=== PATIENT | male | born 1965 | race Caucasian/White ===

== ENCOUNTER 2016-12-16 00:38 | Emergency (ER) | payer OTHER, SELFPAY ==
[2016-12-16] MEDS ORDERED: ASPIRIN 81 MG CHEW TABLET As Ordered ONE (01:05)
[2016-12-16 01:08] LABS: BASO % 0.6 % (0.0-1.0); EOS # 0.4 K/mm3 (0.0-0.50); EOS % 3.8 % (0.0-3.0); LARGE UNSTAINED CELL # 0.3 K/mm3 (0.0-0.4); LARGE UNSTAINED CELL % 2.6 % (0.0-4.0); LYMPH # 2.4 K/mm3 (1.5-4.5); LYMPH % 24.7 % (24.0-44.0); MEAN CORPUSCULAR HEMOGLOBIN 30.1 pg (27.0-33.0); MEAN CORPUSCULAR HGB CONC 34.1 g/dl (32.0-36.5); MEAN CORPUSCULAR VOLUME 88.4 fl (80.0-96.0); MONO # 0.7 K/mm3 (0.0-0.8); MONO % 7.2 % (0.0-5.0); NEUTROPHILS # 5.9 K/mm3 (1.8-7.7); NEUTROPHILS % 61.2 % (36.0-66.0); PLATELET COUNT, AUTOMATED 233 k/mm3 (150-450); WHITE BLOOD COUNT 9.6 K/mm3 (4.0-10.0)
[2016-12-16 01:29] LABS: ALBUMIN 3.8 GM/DL (3.2-5.2); ALBUMIN/GLOBULIN RATIO 0.95 (1.00-1.93); ALKALINE PHOSPHATASE 74 U/L (45-117); ALT/SGPT 22 U/L (12-78); AMYLASE 95 U/L (25-115); ANION GAP 7 MEQ/L (8-16); AST/SGOT 16 U/L (15-37); BILIRUBIN,DIRECT 0.1 MG/DL (0.0-0.2); BILIRUBIN,TOTAL 0.3 MG/DL (0.2-1.0); BLOOD UREA NITROGEN 20 MG/DL (7-18); CALCIUM LEVEL 8.9 MG/DL (8.5-10.1); CARBON DIOXIDE LEVEL 27 MEQ/L (21-32); CHLORIDE LEVEL 107 MEQ/L (98-107); CREATININE FOR GFR 0.85 MG/DL (0.70-1.30); GLOMERULAR FILTRATION RATE > 60.0 (>56); GLUCOSE, FASTING 116 MG/DL (70-105); POTASSIUM SERUM 4.2 MEQ/L (3.5-5.1); SODIUM LEVEL 141 MEQ/L (136-145); TOTAL PROTEIN 7.8 GM/DL (6.4-8.2)
[2016-12-16] MEDS ORDERED: dexameTHASONE 20 MG/5 ML VIAL (J1100) As Ordered ONE (01:33)
[2016-12-16] MEDS ORDERED: IPRATROPIUM 0.5MG/ALBUTEROL 2.5MG INH SOL UD 3ML (DUONEB)(J7620) As Ordered ONE (01:37)
[2016-12-16 01:40] LABS: INR 0.97
[2016-12-16] MEDS ORDERED: CLOPIDOGREL 75 MG TAB As Ordered ONE (02:14)
[2016-12-16] MEDS ORDERED: HEPARIN SOD (PORCINE) 5000 UNITS/ML VIAL As Ordered ONE (02:14)
[2016-12-16] MEDS ORDERED: METOPROLOL TART 25 MG TABLET As Ordered ONE (02:14)
[2016-12-16] MEDS ORDERED: HEPARIN 25,000 UNITS/250 ML D5W BAG (100 UNITS/ML) As Ordered ONE (02:15)
--- NOTE | 2016-12-16 04:39 | EDDOCDS ---
Nurse's Notes [facility] Name: Stevan Evans Age: 51 yrs Sex: Male : 1965 Arrival Date: 12/16/2016 Time: 00:38 Bed 9 Private MD: Diagnosis: Non-ST elevation (NSTEMI) myocardial infarction Presentation: 12/16 00:46 Presenting complaint: Patient states: he has had intermittent chest pain since 1300 cz yesterday. episode of chest pain when going to be arround 2200. pt described it at first as epigastic pain that has gotten worse. currently pt denies any chest pain. Aspirin was not taken prior to arrival. Adult Sepsis Screening: The patient does not have new or worsening altered mentation. Patient's respiratory rate is less than 22. Systolic blood pressure is greater than 100. Patient has a qSOFA score of 0- Negative Sepsis Screen. Suicide/Homicide risk assessment- the patient denies having any suicidal and/or homicidal ideations and does not present with any other emotional, behavioral or mental health complaints. 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 Transition of care: patient was not received from another setting of care. 00:46 Acuity: KOFI Level 3 cz 00:46 Method Of Arrival: Walkin/Carried/Asstd cz Triage Assessment: 00:50 General: Appears in no apparent distress. Pain: Denies pain. cz 03:53 HIV screening NA for this visit Offered previously. Cardiovascular: Chest pain is ko2 described as vague, radiates Does not radiate. episodes are intermittent began. Historical: - Allergies: No known drug Allergies; - Home Meds: 1. none - PMHx: none; - PSHx: Appendectomy; - Social history: Smoking status: Patient uses tobacco products, heavy tobacco smoker. No barriers to communication noted, The patient speaks fluent Honduran, Speaks appropriately for age. - Family history: Not pertinent. - : The pt / caregiver states he / she is not on anticoagulants. Home medication list is obtained from the patient. - Exposure Risk Screening:: None identified. Screenin:04 Screening information is obtained from the patient. Fall risk: No risks identified. ko2 Assistance ADL's: requires no assistance with activities of daily living. Abuse/DV Screen: The patient / caregiver reports he/she is: not in a situation that causes fear, pain or injury. Nutritional screening: No deficits noted. Advance Directives: Currently, there is no health care proxy. There is no active DNR order. There is no living will. There is no Power of Baggage Handler. home support is adequate. Assessment: 01:03 General: Appears in no apparent distress, comfortable, Behavior is appropriate for age, ko2 cooperative. Pain: Denies pain. Neurological: Level of Consciousness is awake, alert. Cardiovascular: Heart tones S1 S2 present Rhythm is regular. Respiratory: Airway is patent Respiratory effort is even, unlabored. GI: Abdomen is obese. Derm: Skin is normal. Musculoskeletal: Range of motion intact in all extremities. 02:00 General: Appears in no apparent distress, comfortable, Behavior is appropriate for age, ko2 cooperative. Pain: Denies pain. Neurological: Level of Consciousness is awake, alert. Cardiovascular: Rhythm is regular. Respiratory: Airway is patent Respiratory effort is even, unlabored. Derm: Skin is normal. 03:00 General: Appears in no apparent distress, comfortable, Behavior is appropriate for age, ko2 cooperative. Neurological: Level of Consciousness is awake, alert. Respiratory: Airway is patent Respiratory effort is even, unlabored. Derm: Skin is normal. 04:04 General: Appears in no apparent distress, comfortable, Behavior is appropriate for age, ko2 cooperative. Pain: Denies pain. Neurological: Level of Consciousness is awake, alert. Respiratory: Airway is patent Respiratory effort is even, unlabored. Derm: Skin is normal. Vital Signs: 00:50 Weight 129.27 kg; Height 5 ft. 8 in. (172.72 cm); cz 00:51 BP 150 / 90; Pulse 83; Resp 16; Temp 98.1(T); Pulse Ox 94% on R/A; cz 01:05 Pulse 76 MON; Pulse Ox 96% ; ko2 01:06 BP 129 / 64 (auto/); ko2 01:21 BP 121 / 57 (auto/); ko2 01:21 Pulse 74 MON; Pulse Ox 95% ; ko2 01:35 Pulse 72 MON; Pulse Ox 96% ; ko2 01:36 BP 117 / 55 (auto/); ko2 01:51 BP 116 / 56 (auto/); ko2 01:51 Pulse 78 MON; Pulse Ox 94% ; ko2 02:06 BP 118 / 55 (auto/); ko2 02:06 Pulse 76 MON; Pulse Ox 96% ; ko2 02:21 BP 165 / 84 (auto/); ko2 02:21 Pulse 86 MON; Pulse Ox 96% ; ko2 02:36 BP 173 / 79 (auto/); ko2 02:36 Pulse 76 MON; Pulse Ox 96% ; ko2 02:51 BP 143 / 64 (auto/); ko2 02:51 Pulse 78 MON; Pulse Ox 96% ; ko2 03:06 BP 138 / 65 (auto/); ko2 03:06 Pulse 84 MON; Pulse Ox 95% ; ko2 04:38 BP 130 / 56; Pulse 72; Resp 18; Temp 98.6; Pulse Ox 97% ; Pain 0/10; ko2 00:50 Body Mass Index 43.33 (129.27 kg, 172.72 cm) cz Vitals: 00:50 Log In Time: December 16, 2016 at 00:39. cz ED Course: 00:39 Patient visited by Carito Odom Reg. hs2 00:39 Patient moved to Waiting hs2 00:44 Lou Sharma RN is Primary Nurse. cz 00:44 Patient moved to 9 cz 00:49 Triage Initiated cz 00:53 Bandar Cruz DO is Attending Physician. cs11 00:53 Patient visited by Bandar Cruz DO. cs11 00:53 EKG done. (by ED staff). Reviewed by Bandar Cruz DO. kb5 01:01 Pt & Aptt Sent. ko2 01:02 Cardiac Marker Panel Sent. ko2 01:02 Lipase Sent. ko2 01:02 Amylase Sent. ko2 01:02 Liver Profile Sent. ko2 01:02 MED Profile Sent. ko2 01:02 CBC with Diff Sent. ko2 01:03 Inserted saline lock: 20 gauge in right forearm and blood collected. The patient ko2 tolerated the procedure well. 01:42 Patient visited by Lou Sharma RN. ko2 02:17 Inserted saline lock: 20 gauge in left antecubital area The patient tolerated the mlc procedure well. 02:28 Patient name changed from Stevan\S\E\S\Evans\S\ to Stevan\S\Edward\S\Evans. EDMS 02:31 [place] [place] was scanned into [employer] and attached to record. hs2 03:53 The patient / caregiver is instructed regarding the plan of care and ED course. Cardiac ko2 monitor on. Pulse ox on. NIBP on. 04:37 No procedures done that require assistance. ko2 Administered Medications: 01:08 Drug: Aspirin 324 mg [aspirin 81 mg chewable tablet (4 tabs)] Route: PO; ko2 01:41 Drug: Albuterol-Ipratropium 3 ml [ipratropium-albuterol 0.5 mg-3 mg(2.5 mg base)/3 mL [facility] nebulization soln (3 mL)] Route: Inhalation; 01:41 Drug: Dexamethasone 10 mg [dexamethasone 4 mg/mL injection solution] Route: IV; Rate: ko2 bolus; Site: right forearm; 02:20 Drug: heparin (Thrombolytic Protocol, 12 units/kg/hr)) 07227 units [heparin (porcine) ko2 25,000 unit/250 mL (100 unit/mL) in dextrose 5 % IV] {Co-Signature: mlc (Beatriz Palma RN).} Route: IV; Rate: 1000 units/hr; Site: right forearm; 02:20 Drug: heparin (Thrombolytic Protocol, 60 units/kg)) 4000 units [heparin (porcine) 5,000 ko2 unit/mL injection solution (0.8 mL)] {Co-Signature: mlc (Beatriz Palma RN).} Route: IVP; Site: right forearm; 02:23 Drug: Plavix - Clopidogrel 150 mg [clopidogrel 75 mg tablet (2 tabs)] Route: PO; ko2 02:23 Drug: Metoprolol 25 mg [metoprolol tartrate 25 mg tablet (1 tabs)] Route: PO; ko2 RT: 01:41 Initial Med Neb Given as ordered Patient was instructed and evaluated on procedure jh6 Patient tolerated procedure well without adverse effect. Respiratory: Airway is patent Respiratory effort is even, unlabored, Respiratory pattern is regular symmetrical, Breath sounds are coarse in left posterior lower lobe Breath sounds with crackles in left posterior upper lobe, right posterior upper lobe and right posterior middle lobe Breath sounds with rhonchi in left posterior lower lobe Breath sounds are diminished in left posterior upper lobe, right posterior upper lobe, right posterior middle lobe and right posterior lower lobe. 01:46 Respiratory: Breath sounds are clear in left posterior upper lobe, right posterior jh6 upper lobe and right posterior middle lobe Breath sounds with crackles in right posterior lower lobe Breath sounds with rhonchi in left posterior lower lobe Breath sounds are diminished in left posterior upper lobe, right posterior upper lobe, left posterior lower lobe, right posterior middle lobe and right posterior lower lobe. Order Results: Lab Order: CBC with Diff; SPEC'M 12/16/16 00:58 Test: WHITE BLOOD COUNT; Value: 9.6; Range: 4.0-10.0; Units: K/mm3; Status: F Test: RED BLOOD COUNT; Value: 5.21; Range: 4.30-6.10; Units: M/mm3; Status: F Test: HEMOGLOBIN; Value: 15.7; Range: 14.0-18.0; Units: g/dl; Status: F Test: HEMATOCRIT; Value: 46.1; Range: 42.0-52.0; Units: %; Status: F Test: MEAN CORPUSCULAR VOLUME; Value: 88.4; Range: 80.0-96.0; Units: fl; Status: F Test: MEAN CORPUSCULAR HEMOGLOBIN; Value: 30.1; Range: 27.0-33.0; Units: pg; Status: F Test: MEAN CORPUSCULAR HGB CONC; Value: 34.1; Range: 32.0-36.5; Units: g/dl; Status: F Test: RED CELL DISTRIBUTION WIDTH; Value: 13.0; Range: 11.5-14.5; Units: %; Status: F Test: PLATELET COUNT, AUTOMATED; Value: 233; Range: 150-450; Units: k/mm3; Status: F Test: NEUTROPHILS %; Value: 61.2; Range: 36.0-66.0; Units: %; Status: F Test: LYMPH %; Value: 24.7; Range: 24.0-44.0; Units: %; Status: F Test: MONO %; Value: 7.2; Range: 0.0-5.0; Abnormal: Above high normal; Units: %; Status: F Test: EOS %; Value: 3.8; Range: 0.0-3.0; Abnormal: Above high normal; Units: %; Status: F Test: BASO %; Value: 0.6; Range: 0.0-1.0; Units: %; Status: F Test: LARGE UNSTAINED CELL %; Value: 2.6; Range: 0.0-4.0; Units: %; Status: F Test: NEUTROPHILS #; Value: 5.9; Range: 1.8-7.7; Units: K/mm3; Status: F Test: LYMPH #; Value: 2.4; Range: 1.5-4.5; Units: K/mm3; Status: F Test: MONO #; Value: 0.7; Range: 0.0-0.8; Units: K/mm3; Status: F Test: EOS #; Value: 0.4; Range: 0.0-0.50; Units: K/mm3; Status: F Test: BASO #; Value: 0.0; Range: 0.0-0.2; Units: K/mm3; Status: F Test: LARGE UNSTAINED CELL #; Value: 0.3; Range: 0.0-0.4; Units: K/mm3; Status: F Lab Order: MED Profile; [facility] 12/16/16 00:58 Test: GLUCOSE, FASTING; Value: 116; Range: 70-105; Abnormal: Above high normal; Units: MG/DL; Status: F Test: BLOOD UREA NITROGEN; Value: 20; Range: 7-18; Abnormal: Above high normal; Units: MG/DL; Status: F Test: CREATININE FOR GFR; Value: 0.85; Range: 0.70-1.30; Units: MG/DL; Status: F Test: GLOMERULAR FILTRATION RATE; Value: > 60.0; Range: >56; Status: F Test: SODIUM LEVEL; Value: 141; Range: 136-145; Units: MEQ/L; Status: F Test: POTASSIUM SERUM; Value: 4.2; Range: 3.5-5.1; Units: MEQ/L; Status: F Test: CHLORIDE LEVEL; Value: 107; Range: 98-107; Units: MEQ/L; Status: F Test: CARBON DIOXIDE LEVEL; Value: 27; Range: 21-32; Units: MEQ/L; Status: F Test: ANION GAP; Value: 7; Range: 8-16; Abnormal: Below low normal; Units: MEQ/L; Status: F Test: CALCIUM LEVEL; Value: 8.9; Range: 8.5-10.1; Units: MG/DL; Status: F Test Note: ; Units are mL/min/1.73 m2 Chronic Kidney Disease Staging per NKF: Stage I & II GFR >=60 Normal to Mildly Decreased Stage III GFR 30-59 Moderately Decreased Stage IV GFR 15-29 Severely Decreased Stage V GFR <15 Very Little GFR Left ESRD GFR <15 on BREAKER MACHINE OPERATOR Lab Order: Liver Profile; [facility]/16/16:58 Test: AST/SGOT; Value: 16; Range: 15-37; Units: U/L; Status: F Test: ALT/SGPT; Value: 22; Range: 12-78; Units: U/L; Status: F Test: ALKALINE PHOSPHATASE; Value: 74; Range: 45-117; Units: U/L; Status: F Test: BILIRUBIN,TOTAL; Value: 0.3; Range: 0.2-1.0; Units: MG/DL; Status: F Test: BILIRUBIN,DIRECT; Value: 0.1; Range: 0.0-0.2; Units: MG/DL; Status: F Test: TOTAL PROTEIN; Value: 7.8; Range: 6.4-8.2; Units: GM/DL; Status: F Test: ALBUMIN; Value: 3.8; Range: 3.2-5.2; Units: GM/DL; Status: F Test: ALBUMIN/GLOBULIN RATIO; Value: 0.95; Range: 1.00-1.93; Abnormal: Below low normal; Status: F Lab Order: Amylase; [facility]12/16/16:58 Test: AMYLASE; Value: 95; Range: 25-115; Units: U/L; Status: F Lab Order: Lipase; [facility]12/16/16:58 Test: LIPASE; Value: 231; Range: 73-393; Units: U/L; Status: F Lab Order: Cardiac Marker Panel; [facility]12/16/16:58 Test: CPK CREATINE PHOSPHOKINASE; Value: 129; Range: 39-308; Units: U/L; Status: F Test: CK-MB VALUE MASS; Value: 4.2; Range: 0.0-3.6; Abnormal: Above high normal; Units: NG/ML; Status: F Test: MB/CK RELATIVE INDEX; Value: 3.25; Range: < OR =4; Status: F Test: TROPONIN I; Value: 0.18; Range: < 0.10; Abnormal: Above high normal; Units: NG/ML; Status: F Test Note: ; DIAGNOSIS CRITERIA MMB ng/ml Relative Index (RI) NON-AMI < or = 5 N/A TOLLIVER ZONE > 5 < or = 4 AMI > 5 > 4 Lab Order: Pt & Aptt; SPEC'M 12/16/16 00:58 Test: PROTHROMBIN TIME; Value: 13.0; Range: 12.3-14.5; Units: SECONDS; Status: F Test: INR; Value: 0.97; Status: F Test: PARTIAL THROMBOPLASTIN TIME; Value: 30.3; Range: 26.6-37.1; Units: SECONDS; Status: F Test Note: ; THERAPUTIC HUMAN INR VALUES INDICATIONS NORMAL RANGES PROPHYLAXIS/TREATMENT OF: VENOUS THROMBOSIS 2.0-3.0 PULMONARY EMBOLISM 2.0-3.0 PREVENTION OF SYSTEMIC EMBOLISM FROM: TISSUE HEART VALVES 2.0-3.0 ACUTE MYOCARDIAL INFARCTION 2.0-3.0 VALVULAR HEART DISEASE 2.0-3.0 ATRIAL FIBRILLATION 2.0-3.0 MECHANICAL VALVES(HIGH RISK) 2.5-3.5 RECURRENT MYOCARDIAL INFARCTION 2.5-3.5 Outcome: 02:13 ER care complete, transfer ordered by Provider. cs11 04:03 Admission hand-off: Report called to Eda Vazquez RN [facility]. ko2 04:04 Discharge Assessment: Patient awake, alert and oriented x 3. No cognitive and/or ko2 functional deficits noted. Patient verbalized understanding of disposition instructions. patient administered narcotics - no. 04:37 The following High Risk Discharge criteria are identified: None. Transferred to [address] [facility] report to accompanying personnel Severino Hendrix, Meeting Coordinator and HENRY Elizabeth. Condition: stable. No special radiology studies were completed. Property :Personal belongings accompany Pt. 04:39 Patient left the ED. ko2 Signatures: Dispatcher [employer] EDMS Ham Calderon RN RN cz [place], Kristopher, JOHANNA [employer] RESTORER binh5 Nehemiah Lr 6 Bandar Cruz DO DO cs11 Beatriz Palma RN RN mlc Lou Sharma RN RN ko2 Carito Odom, Reg Reg hs2 Beatriz Palma RN mlc MTDD
--- NOTE | 2016-12-16 04:39 | EDDOCDS ---
Physician Documentation [facility] Name: Stevan Evans Age: 51 yrs Sex: Male : 1965 Arrival Date: 12/16/2016 Time: 00:38 Bed 9 Private MD: Disposition: 12/16 02:14 Critical Care:. cs11 Disposition: 12/16/16 02:13 Transfer ordered to [facility]. Diagnosis is Non-ST elevation (NSTEMI) myocardial infarction. - Reason for transfer: Higher level of care. - Accepting physician is Dr Stearns. - Condition is Stable. - Problem is new. - Symptoms have improved. Historical: - Allergies: No known drug Allergies; - Home Meds: 1. none - PMHx: none; - PSHx: Appendectomy; - Social history: Smoking status: Patient uses tobacco products, heavy tobacco smoker. No barriers to communication noted, The patient speaks fluent Polish, Speaks appropriately for age. - Family history: Not pertinent. - : The pt / caregiver states he / she is not on anticoagulants. Home medication list is obtained from the patient. - Exposure Risk Screening:: None identified. Vital Signs: 00:50 Weight 129.27 kg / 284.99 lbs; Height 5 ft. 8 in. (172.72 cm); cz 00:51 BP 150 / 90; Pulse 83; Resp 16; Temp 98.1(T); Pulse Ox 94% on R/A; cz 01:05 Pulse 76 MON; Pulse Ox 96% ; ko2 01:06 BP 129 / 64 (auto/); ko2 01:21 BP 121 / 57 (auto/); ko2 01:21 Pulse 74 MON; Pulse Ox 95% ; ko2 01:35 Pulse 72 MON; Pulse Ox 96% ; ko2 01:36 BP 117 / 55 (auto/); ko2 01:51 BP 116 / 56 (auto/); ko2 01:51 Pulse 78 MON; Pulse Ox 94% ; ko2 02:06 BP 118 / 55 (auto/); ko2 02:06 Pulse 76 MON; Pulse Ox 96% ; ko2 02:21 BP 165 / 84 (auto/); ko2 02:21 Pulse 86 MON; Pulse Ox 96% ; ko2 02:36 BP 173 / 79 (auto/); ko2 02:36 Pulse 76 MON; Pulse Ox 96% ; ko2 02:51 BP 143 / 64 (auto/); ko2 02:51 Pulse 78 MON; Pulse Ox 96% ; ko2 03:06 BP 138 / 65 (auto/); ko2 03:06 Pulse 84 MON; Pulse Ox 95% ; ko2 04:38 BP 130 / 56; Pulse 72; Resp 18; Temp 98.6; Pulse Ox 97% ; Pain 0/10; ko2 00:50 Body Mass Index 43.33 (129.27 kg, 172.72 cm) cz MDM: 00:45 ECG WITH READING ER PHYS+CARDIAG ordered. EDMS 00:54 Aspirin 324 mg PO once ordered. cs11 00:54 IV Saline Lock ordered. cs11 00:56 Chest, 2 View (pa\E\lat) Ordered. EDMS 00:56 CBC with Diff Ordered. EDMS 00:56 MED Profile Ordered. EDMS 00:56 Liver Profile Ordered. EDMS 00:56 Amylase Ordered. EDMS 00:56 Lipase Ordered. EDMS 00:56 Cardiac Marker Panel Ordered. EDMS 00:56 Pt & Aptt Ordered. EDMS 01:29 Albuterol-Ipratropium 3 ml Inhalation once ordered. cs11 01:29 Call Respiratory ordered. cs11 01:29 Dexamethasone 10 mg IV at bolus once ordered. cs11 01:31 Call Respiratory complete. ko2 02:03 CBC with Diff Reviewed. cs11 02:03 MED Profile Reviewed. cs11 02:03 Liver Profile Reviewed. cs11 02:03 Cardiac Marker Panel Reviewed. cs11 02:03 Amylase Reviewed. cs11 02:03 Lipase Reviewed. cs11 02:03 Pt & Aptt Reviewed. cs11 02:08 Plavix - Clopidogrel 150 mg PO once ordered. cs11 02:08 Metoprolol (Tartrate) 25 mg PO once ordered. cs11 02:08 heparin (Thrombolytic Protocol, 12 units/kg/hr)) 30367 units IV at 1000 units/hr once; cs11 Max. dose 1000units/hr. No Lovenox past 18hrs/ draw labs. ordered. 02:09 heparin (Thrombolytic Protocol, 60 units/kg)) 4000 units IVP once; max 4000 units. cs11 Ensure no Lovenox in past 18hr, labs drawn ordered. 02:30 Financial registration complete. hs2 02:31 [facility] Payment Agreement was scanned into [employer] and attached to record. hs2 Administered Medications: 01:08 Drug: Aspirin 324 mg [aspirin 81 mg chewable tablet (4 tabs)] Route: PO; ko2 01:41 Drug: Albuterol-Ipratropium 3 ml [ipratropium-albuterol 0.5 mg-3 mg(2.5 mg base)/3 mL jh6 nebulization soln (3 mL)] Route: Inhalation; :41 Drug: Dexamethasone 10 mg [dexamethasone 4 mg/mL injection solution] Route: IV; Rate: ko2 bolus; Site: right forearm; 02:20 Drug: heparin (Thrombolytic Protocol, 12 units/kg/hr)) 68369 units [heparin (porcine) ko2 25,000 unit/250 mL (100 unit/mL) in dextrose 5 % IV] {Co-Signature: mlc (Beatriz Palma RN).} Route: IV; Rate: 1000 units/hr; Site: right forearm; 02:20 Drug: heparin (Thrombolytic Protocol, 60 units/kg)) 4000 units [heparin (porcine) 5,000 ko2 unit/mL injection solution (0.8 mL)] {Co-Signature: mlc (Beatriz Palma RN).} Route: IVP; Site: right forearm; 02:23 Drug: Plavix - Clopidogrel 150 mg [clopidogrel 75 mg tablet (2 tabs)] Route: PO; ko2 02:23 Drug: Metoprolol 25 mg [metoprolol tartrate 25 mg tablet (1 tabs)] Route: PO; ko2 Critical Care Time: 02:14 Critical care time: Bedside Care: 90 minutes. Total time: 90 minutes cs11 Signatures: Dispatcher [employer] EDMS Ham Calderon RN RN Bandar Leslie DO DO cs11 Lou Sharma RN RN ko2 Carito Odom, Reg Reg hs2 Nehemiah Lr 6 Beatriz israel The chart was reviewed and I authenticate all verbal orders and agree with the evaluation and treatment provided.Attachments: 02:31 [facility] Payment Agreement hs2 MTDD
--- NOTE | 2016-12-16 07:54 | REP ---
Clinical: Lower chest and abdominal pain . Comparison: None . Technique: PA and lateral. Findings: The mediastinum and cardiac silhouette are normal. The lung manzo are clear and without acute consolidation, effusion, or pneumothorax. The skeletal structures are intact and normal. Impression: 1. No acute cardiopulmonary process. Signed by Jed Person MD 12/16/2016 07:46 A
--- NOTE | 2016-12-16 15:23 | ECGEPIP ---
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
--- NOTE | 2016-12-18 05:39 | EDDOCDS ---
Physician Documentation [facility] Name: Stevan Evans Age: 51 yrs Sex: Male : 1965 Arrival Date: 12/16/2016 Time: 00:38 Bed 9 Private MD: Disposition: 12/16 02:14 Critical Care:. cs11 Disposition: 12/16/16 02:13 Transfer ordered to [facility]. Diagnosis is Non-ST elevation (NSTEMI) myocardial infarction. - Reason for transfer: Higher level of care. - Accepting physician is Dr Stearns. - Condition is Stable. - Problem is new. - Symptoms have improved. Historical: - Allergies: No known drug Allergies; - Home Meds: 1. none - PMHx: none; - PSHx: Appendectomy; - Social history: Smoking status: Patient uses tobacco products, heavy tobacco smoker. No barriers to communication noted, The patient speaks fluent Khmer, Speaks appropriately for age. - Family history: Not pertinent. - : The pt / caregiver states he / she is not on anticoagulants. Home medication list is obtained from the patient. - Exposure Risk Screening:: None identified. Vital Signs: 00:50 Weight 129.27 kg / 284.99 lbs; Height 5 ft. 8 in. (172.72 cm); cz 00:51 BP 150 / 90; Pulse 83; Resp 16; Temp 98.1(T); Pulse Ox 94% on R/A; cz 01:05 Pulse 76 MON; Pulse Ox 96% ; ko2 01:06 BP 129 / 64 (auto/); ko2 01:21 BP 121 / 57 (auto/); ko2 01:21 Pulse 74 MON; Pulse Ox 95% ; ko2 01:35 Pulse 72 MON; Pulse Ox 96% ; ko2 01:36 BP 117 / 55 (auto/); ko2 01:51 BP 116 / 56 (auto/); ko2 01:51 Pulse 78 MON; Pulse Ox 94% ; ko2 02:06 BP 118 / 55 (auto/); ko2 02:06 Pulse 76 MON; Pulse Ox 96% ; ko2 02:21 BP 165 / 84 (auto/); ko2 02:21 Pulse 86 MON; Pulse Ox 96% ; ko2 02:36 BP 173 / 79 (auto/); ko2 02:36 Pulse 76 MON; Pulse Ox 96% ; ko2 02:51 BP 143 / 64 (auto/); ko2 02:51 Pulse 78 MON; Pulse Ox 96% ; ko2 03:06 BP 138 / 65 (auto/); ko2 03:06 Pulse 84 MON; Pulse Ox 95% ; ko2 04:38 BP 130 / 56; Pulse 72; Resp 18; Temp 98.6; Pulse Ox 97% ; Pain 0/10; ko2 00:50 Body Mass Index 43.33 (129.27 kg, 172.72 cm) cz MDM: 00:45 ECG WITH READING ER PHYS+CARDIAG ordered. EDMS 00:54 Aspirin 324 mg PO once ordered. cs11 00:54 IV Saline Lock ordered. cs11 00:56 Chest, 2 View (pa\E\lat) Ordered. EDMS 00:56 CBC with Diff Ordered. EDMS 00:56 MED Profile Ordered. EDMS 00:56 Liver Profile Ordered. EDMS 00:56 Amylase Ordered. EDMS 00:56 Lipase Ordered. EDMS 00:56 Cardiac Marker Panel Ordered. EDMS 00:56 Pt & Aptt Ordered. EDMS 01:29 Albuterol-Ipratropium 3 ml Inhalation once ordered. cs11 01:29 Call Respiratory ordered. cs11 01:29 Dexamethasone 10 mg IV at bolus once ordered. cs11 01:31 Call Respiratory complete. ko2 02:03 CBC with Diff Reviewed. cs11 02:03 MED Profile Reviewed. cs11 02:03 Liver Profile Reviewed. cs11 02:03 Cardiac Marker Panel Reviewed. cs11 02:03 Amylase Reviewed. cs11 02:03 Lipase Reviewed. cs11 02:03 Pt & Aptt Reviewed. cs11 02:08 Plavix - Clopidogrel 150 mg PO once ordered. cs11 02:08 Metoprolol (Tartrate) 25 mg PO once ordered. cs11 02:08 heparin (Thrombolytic Protocol, 12 units/kg/hr)) 65832 units IV at 1000 units/hr once; cs11 Max. dose 1000units/hr. No Lovenox past 18hrs/ draw labs. ordered. 02:09 heparin (Thrombolytic Protocol, 60 units/kg)) 4000 units IVP once; max 4000 units. cs11 Ensure no Lovenox in past 18hr, labs drawn ordered. 02:30 Financial registration complete. hs2 02:31 [facility] Payment Agreement was scanned into [employer] and attached to record. hs2 21:05 T-Sheet-- Draft Copy was scanned into [employer] and attached to record. klr Administered Medications: 01:08 Drug: Aspirin 324 mg [aspirin 81 mg chewable tablet (4 tabs)] Route: PO; ko2 01:41 Drug: Albuterol-Ipratropium 3 ml [ipratropium-albuterol 0.5 mg-3 mg(2.5 mg base)/3 mL 6 nebulization soln (3 mL)] Route: Inhalation; :41 Drug: Dexamethasone 10 mg [dexamethasone 4 mg/mL injection solution] Route: IV; Rate: ko2 bolus; Site: right forearm; 02:20 Drug: heparin (Thrombolytic Protocol, 12 units/kg/hr)) 92083 units [heparin (porcine) ko2 25,000 unit/250 mL (100 unit/mL) in dextrose 5 % IV] {Co-Signature: mlc (Beatriz Pamla RN).} Route: IV; Rate: 1000 units/hr; Site: right forearm; 02:20 Drug: heparin (Thrombolytic Protocol, 60 units/kg)) 4000 units [heparin (porcine) 5,000 ko2 unit/mL injection solution (0.8 mL)] {Co-Signature: mlc (Beatriz Palma RN).} Route: IVP; Site: right forearm; 02:23 Drug: Plavix - Clopidogrel 150 mg [clopidogrel 75 mg tablet (2 tabs)] Route: PO; ko2 02:23 Drug: Metoprolol 25 mg [metoprolol tartrate 25 mg tablet (1 tabs)] Route: PO; ko2 Critical Care Time: 02:14 Critical care time: Bedside Care: 90 minutes. Total time: 90 minutes cs11 Signatures: Dispatcher [employer] Ham Ramos RN RN cz Schiff, Craig, DO DO cs11 Lou Sharma RN RN ko2 Carito Odom, Christos Reg hs2 Leticia Martellr [address] Beatriz israel The chart was reviewed and I authenticate all verbal orders and agree with the evaluation and treatment provided.Attachments: 02:31 [facility] Payment Agreement hs2 21:05 T-Sheet-- Draft Copy klr Chart Complete MTDD
--- NOTE | 2016-12-18 05:39 | EDDOCDS ---
Physician Documentation [facility] Name: Stevan Evans Age: 51 yrs Sex: Male : 1965 Arrival Date: 12/16/2016 Time: 00:38 Bed 9 Private MD: Disposition: 12/16 02:14 Critical Care:. cs11 Disposition: 12/16/16 02:13 Transfer ordered to [facility]. Diagnosis is Non-ST elevation (NSTEMI) myocardial infarction. - Reason for transfer: Higher level of care. - Accepting physician is Dr Stearns. - Condition is Stable. - Problem is new. - Symptoms have improved. Historical: - Allergies: No known drug Allergies; - Home Meds: 1. none - PMHx: none; - PSHx: Appendectomy; - Social history: Smoking status: Patient uses tobacco products, heavy tobacco smoker. No barriers to communication noted, The patient speaks fluent Yakut, Speaks appropriately for age. - Family history: Not pertinent. - : The pt / caregiver states he / she is not on anticoagulants. Home medication list is obtained from the patient. - Exposure Risk Screening:: None identified. Vital Signs: 00:50 Weight 129.27 kg / 284.99 lbs; Height 5 ft. 8 in. (172.72 cm); cz 00:51 BP 150 / 90; Pulse 83; Resp 16; Temp 98.1(T); Pulse Ox 94% on R/A; cz 01:05 Pulse 76 MON; Pulse Ox 96% ; ko2 01:06 BP 129 / 64 (auto/); ko2 01:21 BP 121 / 57 (auto/); ko2 01:21 Pulse 74 MON; Pulse Ox 95% ; ko2 01:35 Pulse 72 MON; Pulse Ox 96% ; ko2 01:36 BP 117 / 55 (auto/); ko2 01:51 BP 116 / 56 (auto/); ko2 01:51 Pulse 78 MON; Pulse Ox 94% ; ko2 02:06 BP 118 / 55 (auto/); ko2 02:06 Pulse 76 MON; Pulse Ox 96% ; ko2 02:21 BP 165 / 84 (auto/); ko2 02:21 Pulse 86 MON; Pulse Ox 96% ; ko2 02:36 BP 173 / 79 (auto/); ko2 02:36 Pulse 76 MON; Pulse Ox 96% ; ko2 02:51 BP 143 / 64 (auto/); ko2 02:51 Pulse 78 MON; Pulse Ox 96% ; ko2 03:06 BP 138 / 65 (auto/); ko2 03:06 Pulse 84 MON; Pulse Ox 95% ; ko2 04:38 BP 130 / 56; Pulse 72; Resp 18; Temp 98.6; Pulse Ox 97% ; Pain 0/10; ko2 00:50 Body Mass Index 43.33 (129.27 kg, 172.72 cm) cz MDM: 00:45 ECG WITH READING ER PHYS+CARDIAG ordered. EDMS 00:54 Aspirin 324 mg PO once ordered. cs11 00:54 IV Saline Lock ordered. cs11 00:56 Chest, 2 View (pa\E\lat) Ordered. EDMS 00:56 CBC with Diff Ordered. EDMS 00:56 MED Profile Ordered. EDMS 00:56 Liver Profile Ordered. EDMS 00:56 Amylase Ordered. EDMS 00:56 Lipase Ordered. EDMS 00:56 Cardiac Marker Panel Ordered. EDMS 00:56 Pt & Aptt Ordered. EDMS 01:29 Albuterol-Ipratropium 3 ml Inhalation once ordered. cs11 01:29 Call Respiratory ordered. cs11 01:29 Dexamethasone 10 mg IV at bolus once ordered. cs11 01:31 Call Respiratory complete. ko2 02:03 CBC with Diff Reviewed. cs11 02:03 MED Profile Reviewed. cs11 02:03 Liver Profile Reviewed. cs11 02:03 Cardiac Marker Panel Reviewed. cs11 02:03 Amylase Reviewed. cs11 02:03 Lipase Reviewed. cs11 02:03 Pt & Aptt Reviewed. cs11 02:08 Plavix - Clopidogrel 150 mg PO once ordered. cs11 02:08 Metoprolol (Tartrate) 25 mg PO once ordered. cs11 02:08 heparin (Thrombolytic Protocol, 12 units/kg/hr)) 68828 units IV at 1000 units/hr once; cs11 Max. dose 1000units/hr. No Lovenox past 18hrs/ draw labs. ordered. 02:09 heparin (Thrombolytic Protocol, 60 units/kg)) 4000 units IVP once; max 4000 units. cs11 Ensure no Lovenox in past 18hr, labs drawn ordered. 02:30 Financial registration complete. hs2 02:31 [facility] Payment Agreement was scanned into [employer] and attached to record. hs2 21:05 T-Sheet-- Draft Copy was scanned into [employer] and attached to record. klr Administered Medications: 01:08 Drug: Aspirin 324 mg [aspirin 81 mg chewable tablet (4 tabs)] Route: PO; ko2 01:41 Drug: Albuterol-Ipratropium 3 ml [ipratropium-albuterol 0.5 mg-3 mg(2.5 mg base)/3 mL 6 nebulization soln (3 mL)] Route: Inhalation; :41 Drug: Dexamethasone 10 mg [dexamethasone 4 mg/mL injection solution] Route: IV; Rate: ko2 bolus; Site: right forearm; 02:20 Drug: heparin (Thrombolytic Protocol, 12 units/kg/hr)) 92333 units [heparin (porcine) ko2 25,000 unit/250 mL (100 unit/mL) in dextrose 5 % IV] {Co-Signature: mlc (Beatriz Palma RN).} Route: IV; Rate: 1000 units/hr; Site: right forearm; 02:20 Drug: heparin (Thrombolytic Protocol, 60 units/kg)) 4000 units [heparin (porcine) 5,000 ko2 unit/mL injection solution (0.8 mL)] {Co-Signature: mlc (Beatriz Palma RN).} Route: IVP; Site: right forearm; 02:23 Drug: Plavix - Clopidogrel 150 mg [clopidogrel 75 mg tablet (2 tabs)] Route: PO; ko2 02:23 Drug: Metoprolol 25 mg [metoprolol tartrate 25 mg tablet (1 tabs)] Route: PO; ko2 Critical Care Time: 02:14 Critical care time: Bedside Care: 90 minutes. Total time: 90 minutes cs11 Signatures: Dispatcher [employer] Ham Ramos RN RN cz Schiff, Craig, DO DO cs11 Lou Sharma RN RN ko2 Carito Odom, Christos Reg hs2 Leticia Martellr [address] Beatriz israel The chart was reviewed and I authenticate all verbal orders and agree with the evaluation and treatment provided.Attachments: 02:31 [facility] Payment Agreement hs2 21:05 T-Sheet-- Draft Copy klr Chart Complete MTDD
--- NOTE | 2016-12-18 05:40 | EDDOCDS ---
Nurse's Notes [facility] Name: Carlos Baltazar Age: 51 yrs Sex: Male : 1965 Arrival Date: 12/16/2016 Time: 00:38 Bed 9 Private MD: Diagnosis: Non-ST elevation (NSTEMI) myocardial infarction Presentation: 12/16 00:46 Presenting complaint: Patient states: he has had intermittent chest pain since 1300 cz yesterday. episode of chest pain when going to be arround 2200. pt described it at first as epigastic pain that has gotten worse. currently pt denies any chest pain. Aspirin was not taken prior to arrival. Adult Sepsis Screening: The patient does not have new or worsening altered mentation. Patient's respiratory rate is less than 22. Systolic blood pressure is greater than 100. Patient has a qSOFA score of 0- Negative Sepsis Screen. Suicide/Homicide risk assessment- the patient denies having any suicidal and/or homicidal ideations and does not present with any other emotional, behavioral or mental health complaints. Status: Patient is not a marketing services manager or dependent. Transition of care: patient was not received from another setting of care. 00:46 Acuity: KOFI Level 3 cz 00:46 Method Of Arrival: Walkin/Carried/Asstd cz Triage Assessment: 00:50 General: Appears in no apparent distress. Pain: Denies pain. cz 03:53 HIV screening NA for this visit Offered previously. Cardiovascular: Chest pain is ko2 described as vague, radiates Does not radiate. episodes are intermittent began. Historical: - Allergies: No known drug Allergies; - Home Meds: 1. none - PMHx: none; - PSHx: Appendectomy; - Social history: Smoking status: Patient uses tobacco products, heavy tobacco smoker. No barriers to communication noted, The patient speaks fluent Panamanian, Speaks appropriately for age. - Family history: Not pertinent. - : The pt / caregiver states he / she is not on anticoagulants. Home medication list is obtained from the patient. - Exposure Risk Screening:: None identified. Screenin:04 Screening information is obtained from the patient. Fall risk: No risks identified. ko2 Assistance ADL's: requires no assistance with activities of daily living. Abuse/DV Screen: The patient / caregiver reports he/she is: not in a situation that causes fear, pain or injury. Nutritional screening: No deficits noted. Advance Directives: Currently, there is no health care proxy. There is no active DNR order. There is no living will. There is no Power of Shirt Ironer Supervisor. home support is adequate. Assessment: 01:03 General: Appears in no apparent distress, comfortable, Behavior is appropriate for age, ko2 cooperative. Pain: Denies pain. Neurological: Level of Consciousness is awake, alert. Cardiovascular: Heart tones S1 S2 present Rhythm is regular. Respiratory: Airway is patent Respiratory effort is even, unlabored. GI: Abdomen is obese. Derm: Skin is normal. Musculoskeletal: Range of motion intact in all extremities. 02:00 General: Appears in no apparent distress, comfortable, Behavior is appropriate for age, ko2 cooperative. Pain: Denies pain. Neurological: Level of Consciousness is awake, alert. Cardiovascular: Rhythm is regular. Respiratory: Airway is patent Respiratory effort is even, unlabored. Derm: Skin is normal. 03:00 General: Appears in no apparent distress, comfortable, Behavior is appropriate for age, ko2 cooperative. Neurological: Level of Consciousness is awake, alert. Respiratory: Airway is patent Respiratory effort is even, unlabored. Derm: Skin is normal. 04:04 General: Appears in no apparent distress, comfortable, Behavior is appropriate for age, ko2 cooperative. Pain: Denies pain. Neurological: Level of Consciousness is awake, alert. Respiratory: Airway is patent Respiratory effort is even, unlabored. Derm: Skin is normal. Vital Signs: 00:50 Weight 129.27 kg; Height 5 ft. 8 in. (172.72 cm); cz 00:51 BP 150 / 90; Pulse 83; Resp 16; Temp 98.1(T); Pulse Ox 94% on R/A; cz 01:05 Pulse 76 MON; Pulse Ox 96% ; ko2 01:06 BP 129 / 64 (auto/); ko2 01:21 BP 121 / 57 (auto/); ko2 01:21 Pulse 74 MON; Pulse Ox 95% ; ko2 01:35 Pulse 72 MON; Pulse Ox 96% ; ko2 01:36 BP 117 / 55 (auto/); ko2 01:51 BP 116 / 56 (auto/); ko2 01:51 Pulse 78 MON; Pulse Ox 94% ; ko2 02:06 BP 118 / 55 (auto/); ko2 02:06 Pulse 76 MON; Pulse Ox 96% ; ko2 02:21 BP 165 / 84 (auto/); ko2 02:21 Pulse 86 MON; Pulse Ox 96% ; ko2 02:36 BP 173 / 79 (auto/); ko2 02:36 Pulse 76 MON; Pulse Ox 96% ; ko2 02:51 BP 143 / 64 (auto/); ko2 02:51 Pulse 78 MON; Pulse Ox 96% ; ko2 03:06 BP 138 / 65 (auto/); ko2 03:06 Pulse 84 MON; Pulse Ox 95% ; ko2 04:38 BP 130 / 56; Pulse 72; Resp 18; Temp 98.6; Pulse Ox 97% ; Pain 0/10; ko2 00:50 Body Mass Index 43.33 (129.27 kg, 172.72 cm) cz Vitals: 00:50 Log In Time: December 16, 2016 at 00:39. cz ED Course: 00:39 Patient visited by Carito Odom Reg. hs2 00:39 Patient moved to Waiting hs2 00:44 Lou Sharma RN is Primary Nurse. cz 00:44 Patient moved to 9 cz 00:49 Triage Initiated cz 00:53 Bandar Tabor DO is Attending Physician. cs11 00:53 Patient visited by Bandar Tabor DO. cs11 00:53 EKG done. (by ED staff). Reviewed by Bandar Tabor DO. kb5 01:01 Pt & Aptt Sent. ko2 01:02 Cardiac Marker Panel Sent. ko2 01:02 Lipase Sent. ko2 01:02 Amylase Sent. ko2 01:02 Liver Profile Sent. ko2 01:02 MED Profile Sent. ko2 01:02 CBC with Diff Sent. ko2 01:03 Inserted saline lock: 20 gauge in right forearm and blood collected. The patient ko2 tolerated the procedure well. 01:42 Patient visited by Lou Sharma RN. ko2 02:17 Inserted saline lock: 20 gauge in left antecubital area The patient tolerated the mlc procedure well. 02:28 Patient name changed from Carlos\S\E\S\Baltazar\S\ to Carlos\S\Edward\S\Baltazar. EDMS 02:31 [facility] Payment Agreement was scanned into [employer] and attached to record. hs2 03:53 The patient / caregiver is instructed regarding the plan of care and ED course. Cardiac ko2 monitor on. Pulse ox on. NIBP on. 04:37 No procedures done that require assistance. ko2 08:10 Chest, 2 View (pa\E\lat) Returned. EDMS 16:07 EKG-ADULT Returned. EDMS 21:05 T-Sheet-- Draft Copy was scanned into [employer] and attached to record. klr Administered Medications: 01:08 Drug: Aspirin 324 mg [aspirin 81 mg chewable tablet (4 tabs)] Route: PO; ko2 01:41 Drug: Albuterol-Ipratropium 3 ml [ipratropium-albuterol 0.5 mg-3 mg(2.5 mg base)/3 mL jh6 nebulization soln (3 mL)] Route: Inhalation; 01:41 Drug: Dexamethasone 10 mg [dexamethasone 4 mg/mL injection solution] Route: IV; Rate: ko2 bolus; Site: right forearm; 02:20 Drug: heparin (Thrombolytic Protocol, 12 units/kg/hr)) 13509 units [heparin (porcine) ko2 25,000 unit/250 mL (100 unit/mL) in dextrose 5 % IV] {Co-Signature: mlc (Beatriz Palma RN).} Route: IV; Rate: 1000 units/hr; Site: right forearm; 02:20 Drug: heparin (Thrombolytic Protocol, 60 units/kg)) 4000 units [heparin (porcine) 5,000 ko2 unit/mL injection solution (0.8 mL)] {Co-Signature: mlc (Beatriz Palma RN).} Route: IVP; Site: right forearm; 02:23 Drug: Plavix - Clopidogrel 150 mg [clopidogrel 75 mg tablet (2 tabs)] Route: PO; ko2 02:23 Drug: Metoprolol 25 mg [metoprolol tartrate 25 mg tablet (1 tabs)] Route: PO; ko2 RT: 01:41 Initial Med Neb Given as ordered Patient was instructed and evaluated on procedure jh6 Patient tolerated procedure well without adverse effect. Respiratory: Airway is patent Respiratory effort is even, unlabored, Respiratory pattern is regular symmetrical, Breath sounds are coarse in left posterior lower lobe Breath sounds with crackles in left posterior upper lobe, right posterior upper lobe and right posterior middle lobe Breath sounds with rhonchi in left posterior lower lobe Breath sounds are diminished in left posterior upper lobe, right posterior upper lobe, right posterior middle lobe and right posterior lower lobe. 01:46 Respiratory: Breath sounds are clear in left posterior upper lobe, right posterior jh6 upper lobe and right posterior middle lobe Breath sounds with crackles in right posterior lower lobe Breath sounds with rhonchi in left posterior lower lobe Breath sounds are diminished in left posterior upper lobe, right posterior upper lobe, left posterior lower lobe, right posterior middle lobe and right posterior lower lobe. Order Results: Lab Order: CBC with Diff; SPEC'M 12/16/16 00:58 Test: WHITE BLOOD COUNT; Value: 9.6; Range: 4.0-10.0; Units: K/mm3; Status: F Test: RED BLOOD COUNT; Value: 5.21; Range: 4.30-6.10; Units: M/mm3; Status: F Test: HEMOGLOBIN; Value: 15.7; Range: 14.0-18.0; Units: g/dl; Status: F Test: HEMATOCRIT; Value: 46.1; Range: 42.0-52.0; Units: %; Status: F Test: MEAN CORPUSCULAR VOLUME; Value: 88.4; Range: 80.0-96.0; Units: fl; Status: F Test: MEAN CORPUSCULAR HEMOGLOBIN; Value: 30.1; Range: 27.0-33.0; Units: pg; Status: F Test: MEAN CORPUSCULAR HGB CONC; Value: 34.1; Range: 32.0-36.5; Units: g/dl; Status: F Test: RED CELL DISTRIBUTION WIDTH; Value: 13.0; Range: 11.5-14.5; Units: %; Status: F Test: PLATELET COUNT, AUTOMATED; Value: 233; Range: 150-450; Units: k/mm3; Status: F Test: NEUTROPHILS %; Value: 61.2; Range: 36.0-66.0; Units: %; Status: F Test: LYMPH %; Value: 24.7; Range: 24.0-44.0; Units: %; Status: F Test: MONO %; Value: 7.2; Range: 0.0-5.0; Abnormal: Above high normal; Units: %; Status: F Test: EOS %; Value: 3.8; Range: 0.0-3.0; Abnormal: Above high normal; Units: %; Status: F Test: BASO %; Value: 0.6; Range: 0.0-1.0; Units: %; Status: F Test: LARGE UNSTAINED CELL %; Value: 2.6; Range: 0.0-4.0; Units: %; Status: F Test: NEUTROPHILS #; Value: 5.9; Range: 1.8-7.7; Units: K/mm3; Status: F Test: LYMPH #; Value: 2.4; Range: 1.5-4.5; Units: K/mm3; Status: F Test: MONO #; Value: 0.7; Range: 0.0-0.8; Units: K/mm3; Status: F Test: EOS #; Value: 0.4; Range: 0.0-0.50; Units: K/mm3; Status: F Test: BASO #; Value: 0.0; Range: 0.0-0.2; Units: K/mm3; Status: F Test: LARGE UNSTAINED CELL #; Value: 0.3; Range: 0.0-0.4; Units: K/mm3; Status: F Lab Order: [facility] Profile; [facility]' 12/16/16 00:58 Test: GLUCOSE, FASTING; Value: 116; Range: 70-105; Abnormal: Above high normal; Units: MG/DL; Status: F Test: BLOOD UREA NITROGEN; Value: 20; Range: 7-18; Abnormal: Above high normal; Units: MG/DL; Status: F Test: CREATININE FOR GFR; Value: 0.85; Range: 0.70-1.30; Units: MG/DL; Status: F Test: GLOMERULAR FILTRATION RATE; Value: > 60.0; Range: >56; Status: F Test: SODIUM LEVEL; Value: 141; Range: 136-145; Units: MEQ/L; Status: F Test: POTASSIUM SERUM; Value: 4.2; Range: 3.5-5.1; Units: MEQ/L; Status: F Test: CHLORIDE LEVEL; Value: 107; Range: 98-107; Units: MEQ/L; Status: F Test: CARBON DIOXIDE LEVEL; Value: 27; Range: 21-32; Units: MEQ/L; Status: F Test: ANION GAP; Value: 7; Range: 8-16; Abnormal: Below low normal; Units: MEQ/L; Status: F Test: CALCIUM LEVEL; Value: 8.9; Range: 8.5-10.1; Units: MG/DL; Status: F Test Note: ; Units are mL/min/1.73 m2 Chronic Kidney Disease Staging per NKF: Stage I & II GFR >=60 Normal to Mildly Decreased Stage III GFR 30-59 Moderately Decreased Stage IV GFR 15-29 Severely Decreased Stage V GFR <15 Very Little GFR Left ESRD GFR <15 on AUTOMOBILE CLUB TRAVEL COUNSELOR Lab Order: Liver Profile; 12/16/16:58 Test: AST/SGOT; Value: 16; Range: 15-37; Units: U/L; Status: F Test: ALT/SGPT; Value: 22; Range: 12-78; Units: U/L; Status: F Test: ALKALINE PHOSPHATASE; Value: 74; Range: 45-117; Units: U/L; Status: F Test: BILIRUBIN,TOTAL; Value: 0.3; Range: 0.2-1.0; Units: MG/DL; Status: F Test: BILIRUBIN,DIRECT; Value: 0.1; Range: 0.0-0.2; Units: MG/DL; Status: F Test: TOTAL PROTEIN; Value: 7.8; Range: 6.4-8.2; Units: GM/DL; Status: F Test: ALBUMIN; Value: 3.8; Range: 3.2-5.2; Units: GM/DL; Status: F Test: ALBUMIN/GLOBULIN RATIO; Value: 0.95; Range: 1.00-1.93; Abnormal: Below low normal; Status: F Lab Order: Amylase; 12/16/16 00:58 Test: AMYLASE; Value: 95; Range: 25-115; Units: U/L; Status: F Lab Order: Lipase; 12/16/16:58 Test: LIPASE; Value: 231; Range: 73-393; Units: U/L; Status: F Lab Order: Cardiac Marker Panel; 12/16/16 00:58 Test: CPK CREATINE PHOSPHOKINASE; Value: 129; Range: 39-308; Units: U/L; Status: F Test: CK-MB VALUE MASS; Value: 4.2; Range: 0.0-3.6; Abnormal: Above high normal; Units: NG/ML; Status: F Test: MB/CK RELATIVE INDEX; Value: 3.25; Range: < OR =4; Status: F Test: TROPONIN I; Value: 0.18; Range: < 0.10; Abnormal: Above high normal; Units: NG/ML; Status: F Test Note: ; DIAGNOSIS CRITERIA MMB ng/ml Relative Index (RI) NON-AMI < or = 5 N/A TOLLIVER ZONE > 5 < or = 4 AMI > 5 > 4 Lab Order: Pt & Aptt; SPEC'M 12/16/16 00:58 Test: PROTHROMBIN TIME; Value: 13.0; Range: 12.3-14.5; Units: SECONDS; Status: F Test: INR; Value: 0.97; Status: F Test: PARTIAL THROMBOPLASTIN TIME; Value: 30.3; Range: 26.6-37.1; Units: SECONDS; Status: F Test Note: ; THERAPUTIC HUMAN INR VALUES INDICATIONS NORMAL RANGES PROPHYLAXIS/TREATMENT OF: VENOUS THROMBOSIS 2.0-3.0 PULMONARY EMBOLISM 2.0-3.0 PREVENTION OF SYSTEMIC EMBOLISM FROM: TISSUE HEART VALVES 2.0-3.0 ACUTE MYOCARDIAL INFARCTION 2.0-3.0 VALVULAR HEART DISEASE 2.0-3.0 ATRIAL FIBRILLATION 2.0-3.0 MECHANICAL VALVES(HIGH RISK) 2.5-3.5 RECURRENT MYOCARDIAL INFARCTION 2.5-3.5 Radiology Order: EKG-ADULT Test: EKG-ADULT REASON FOR EXAMINATION: Chest Pain; Stationary ECG Study; [facility] - ED; ; Test Date: 2016-12-16; Pat Name: CARLOS BALTAZAR Department:; Room: -; Gender: M Stage Technician: NIK; : 1965 Requested By: BANDAR TABOR; Order Number: [id number] Reading MD: Chikis Parson; Measurements; Intervals [place]; Rate: 81 P: 79; DE: 156 QRS: 47; QRSD: 97 T: 67; QT: 356; QTc: 415; Interpretive Statements; SINUS RHYTHM; INDETERMINATE AXIS; INCOMPLETE RIGHT BUNDLE BRANCH BLOCK; NSTTW ABNORMALITY; NO PRIOR FOR COMPARISON; ; Electronically Signed On 12-16-2016 15:22:41 EST by Chikis Parson; Radiology Order: Chest, 2 View (pa\E\lat) Test: Chest, 2 View (pa\E\lat) REASON FOR EXAMINATION: Abdomen Pain; Clinical: Lower chest and abdominal pain .; ; Comparison: None .; ; Technique: PA and lateral.; ; Findings:; The mediastinum and cardiac silhouette are normal. The lung manzo are clear and; without acute consolidation, effusion, or pneumothorax. The skeletal structures; are intact and normal.; ; Impression:; 1. No acute cardiopulmonary process.; ; ; Signed by; Jed Person MD 12/16/2016 07:46 A; Outcome: 02:13 ER care complete, transfer ordered by Provider. cs11 04:03 Admission hand-off: Report called to Ead Vazquez RN [facility]. ko2 04:04 Discharge Assessment: Patient awake, alert and oriented x 3. No cognitive and/or ko2 functional deficits noted. Patient verbalized understanding of disposition instructions. patient administered narcotics - no. 04:37 The following High Risk Discharge criteria are identified: None. Transferred to [address] by EMS ground [facility] ambulance report to accompanying personnel Severino Hendrix, Tomb Maker Helper and HENRY Elizabeth. Condition: stable. No special radiology studies were completed. Property :Personal belongings accompany Pt. 04:39 Patient left the ED. ko2 Signatures: Dispatcher [employer] EDMS Ham Calderon RN RN cz Bancroft, Kristopher, JOHANNA purcell5 [address] Bandar Tabor, DO DO cs11 Beatriz Palma RN RN mlc Ogden, Kari, RN RN ko2 Carito Odom, Reg Reg hs2 Leticia Martell RN Chart Complete MTDD
--- NOTE | 2016-12-18 22:14 | EDDOCDS ---
Physician Documentation [facility] Name: Stevan Evans Age: 51 yrs Sex: Male : 1965 Arrival Date: 12/16/2016 Time: 00:38 Bed 9 Private MD: Disposition: 12/16 02:14 Critical Care:. cs11 Disposition: 12/16/16 02:13 Transfer ordered to [facility]. Diagnosis is Non-ST elevation (NSTEMI) myocardial infarction. - Reason for transfer: Higher level of care. - Accepting physician is Dr Stearns. - Condition is Stable. - Problem is new. - Symptoms have improved. Historical: - Allergies: No known drug Allergies; - Home Meds: 1. none - PMHx: none; - PSHx: Appendectomy; - Social history: Smoking status: Patient uses tobacco products, heavy tobacco smoker. No barriers to communication noted, The patient speaks fluent Indonesian, Speaks appropriately for age. - Family history: Not pertinent. - : The pt / caregiver states he / she is not on anticoagulants. Home medication list is obtained from the patient. - Exposure Risk Screening:: None identified. Vital Signs: 00:50 Weight 129.27 kg / 284.99 lbs; Height 5 ft. 8 in. (172.72 cm); cz 00:51 BP 150 / 90; Pulse 83; Resp 16; Temp 98.1(T); Pulse Ox 94% on R/A; cz 01:05 Pulse 76 MON; Pulse Ox 96% ; ko2 01:06 BP 129 / 64 (auto/); ko2 01:21 BP 121 / 57 (auto/); ko2 01:21 Pulse 74 MON; Pulse Ox 95% ; ko2 01:35 Pulse 72 MON; Pulse Ox 96% ; ko2 01:36 BP 117 / 55 (auto/); ko2 01:51 BP 116 / 56 (auto/); ko2 01:51 Pulse 78 MON; Pulse Ox 94% ; ko2 02:06 BP 118 / 55 (auto/); ko2 02:06 Pulse 76 MON; Pulse Ox 96% ; ko2 02:21 BP 165 / 84 (auto/); ko2 02:21 Pulse 86 MON; Pulse Ox 96% ; ko2 02:36 BP 173 / 79 (auto/); ko2 02:36 Pulse 76 MON; Pulse Ox 96% ; ko2 02:51 BP 143 / 64 (auto/); ko2 02:51 Pulse 78 MON; Pulse Ox 96% ; ko2 03:06 BP 138 / 65 (auto/); ko2 03:06 Pulse 84 MON; Pulse Ox 95% ; ko2 04:38 BP 130 / 56; Pulse 72; Resp 18; Temp 98.6; Pulse Ox 97% ; Pain 0/10; ko2 00:50 Body Mass Index 43.33 (129.27 kg, 172.72 cm) cz MDM: 00:45 ECG WITH READING ER PHYS+CARDIAG ordered. EDMS 00:54 Aspirin 324 mg PO once ordered. cs11 00:54 IV Saline Lock ordered. cs11 00:56 Chest, 2 View (pa\E\lat) Ordered. EDMS 00:56 CBC with Diff Ordered. EDMS 00:56 MED Profile Ordered. EDMS 00:56 Liver Profile Ordered. EDMS 00:56 Amylase Ordered. EDMS 00:56 Lipase Ordered. EDMS 00:56 Cardiac Marker Panel Ordered. EDMS 00:56 Pt & Aptt Ordered. EDMS 01:29 Albuterol-Ipratropium 3 ml Inhalation once ordered. cs11 01:29 Call Respiratory ordered. cs11 01:29 Dexamethasone 10 mg IV at bolus once ordered. cs11 01:31 Call Respiratory complete. ko2 02:03 CBC with Diff Reviewed. cs11 02:03 MED Profile Reviewed. cs11 02:03 Liver Profile Reviewed. cs11 02:03 Cardiac Marker Panel Reviewed. cs11 02:03 Amylase Reviewed. cs11 02:03 Lipase Reviewed. cs11 02:03 Pt & Aptt Reviewed. cs11 02:08 Plavix - Clopidogrel 150 mg PO once ordered. cs11 02:08 Metoprolol (Tartrate) 25 mg PO once ordered. cs11 02:08 heparin (Thrombolytic Protocol, 12 units/kg/hr)) 83972 units IV at 1000 units/hr once; cs11 Max. dose 1000units/hr. No Lovenox past 18hrs/ draw labs. ordered. 02:09 heparin (Thrombolytic Protocol, 60 units/kg)) 4000 units IVP once; max 4000 units. cs11 Ensure no Lovenox in past 18hr, labs drawn ordered. 02:30 Financial registration complete. hs2 02:31 [facility] Payment Agreement was scanned into [employer] and attached to record. hs2 21:05 T-Sheet-- Draft Copy was scanned into [employer] and attached to record. klr Administered Medications: 01:08 Drug: Aspirin 324 mg [aspirin 81 mg chewable tablet (4 tabs)] Route: PO; ko2 01:41 Drug: Albuterol-Ipratropium 3 ml [ipratropium-albuterol 0.5 mg-3 mg(2.5 mg base)/3 mL 6 nebulization soln (3 mL)] Route: Inhalation; :41 Drug: Dexamethasone 10 mg [dexamethasone 4 mg/mL injection solution] Route: IV; Rate: ko2 bolus; Site: right forearm; 02:20 Drug: heparin (Thrombolytic Protocol, 12 units/kg/hr)) 35086 units [heparin (porcine) ko2 25,000 unit/250 mL (100 unit/mL) in dextrose 5 % IV] {Co-Signature: mlc (Beatriz Palma RN).} Route: IV; Rate: 1000 units/hr; Site: right forearm; 02:20 Drug: heparin (Thrombolytic Protocol, 60 units/kg)) 4000 units [heparin (porcine) 5,000 ko2 unit/mL injection solution (0.8 mL)] {Co-Signature: mlc (Beatriz Palma RN).} Route: IVP; Site: right forearm; 02:23 Drug: Plavix - Clopidogrel 150 mg [clopidogrel 75 mg tablet (2 tabs)] Route: PO; ko2 02:23 Drug: Metoprolol 25 mg [metoprolol tartrate 25 mg tablet (1 tabs)] Route: PO; ko2 Critical Care Time: 02:14 Critical care time: Bedside Care: 90 minutes. Total time: 90 minutes cs11 Signatures: Dispatcher [employer] Ham Ramos RN RN cz Schiff, Craig, DO DO cs11 Lou Sharma RN RN ko2 Carito dOom, Christos Reg hs2 Leticia Martellr [address] Beatriz israel The chart was reviewed and I authenticate all verbal orders and agree with the evaluation and treatment provided.Attachments: 02:31 [facility] Payment Agreement hs2 21:05 T-Sheet-- Draft Copy klr Chart Complete MTDD
--- NOTE | 2016-12-18 22:14 | EDDOCDS ---
Physician Documentation [facility] Name: Stevan Evans Age: 51 yrs Sex: Male : 1965 Arrival Date: 12/16/2016 Time: 00:38 Bed 9 Private MD: Disposition: 12/16 02:14 Critical Care:. cs11 Disposition: 12/16/16 02:13 Transfer ordered to [facility]. Diagnosis is Non-ST elevation (NSTEMI) myocardial infarction. - Reason for transfer: Higher level of care. - Accepting physician is Dr Stearns. - Condition is Stable. - Problem is new. - Symptoms have improved. Historical: - Allergies: No known drug Allergies; - Home Meds: 1. none - PMHx: none; - PSHx: Appendectomy; - Social history: Smoking status: Patient uses tobacco products, heavy tobacco smoker. No barriers to communication noted, The patient speaks fluent Luxembourgish, Speaks appropriately for age. - Family history: Not pertinent. - : The pt / caregiver states he / she is not on anticoagulants. Home medication list is obtained from the patient. - Exposure Risk Screening:: None identified. Vital Signs: 00:50 Weight 129.27 kg / 284.99 lbs; Height 5 ft. 8 in. (172.72 cm); cz 00:51 BP 150 / 90; Pulse 83; Resp 16; Temp 98.1(T); Pulse Ox 94% on R/A; cz 01:05 Pulse 76 MON; Pulse Ox 96% ; ko2 01:06 BP 129 / 64 (auto/); ko2 01:21 BP 121 / 57 (auto/); ko2 01:21 Pulse 74 MON; Pulse Ox 95% ; ko2 01:35 Pulse 72 MON; Pulse Ox 96% ; ko2 01:36 BP 117 / 55 (auto/); ko2 01:51 BP 116 / 56 (auto/); ko2 01:51 Pulse 78 MON; Pulse Ox 94% ; ko2 02:06 BP 118 / 55 (auto/); ko2 02:06 Pulse 76 MON; Pulse Ox 96% ; ko2 02:21 BP 165 / 84 (auto/); ko2 02:21 Pulse 86 MON; Pulse Ox 96% ; ko2 02:36 BP 173 / 79 (auto/); ko2 02:36 Pulse 76 MON; Pulse Ox 96% ; ko2 02:51 BP 143 / 64 (auto/); ko2 02:51 Pulse 78 MON; Pulse Ox 96% ; ko2 03:06 BP 138 / 65 (auto/); ko2 03:06 Pulse 84 MON; Pulse Ox 95% ; ko2 04:38 BP 130 / 56; Pulse 72; Resp 18; Temp 98.6; Pulse Ox 97% ; Pain 0/10; ko2 00:50 Body Mass Index 43.33 (129.27 kg, 172.72 cm) cz MDM: 00:45 ECG WITH READING ER PHYS+CARDIAG ordered. EDMS 00:54 Aspirin 324 mg PO once ordered. cs11 00:54 IV Saline Lock ordered. cs11 00:56 Chest, 2 View (pa\E\lat) Ordered. EDMS 00:56 CBC with Diff Ordered. EDMS 00:56 MED Profile Ordered. EDMS 00:56 Liver Profile Ordered. EDMS 00:56 Amylase Ordered. EDMS 00:56 Lipase Ordered. EDMS 00:56 Cardiac Marker Panel Ordered. EDMS 00:56 Pt & Aptt Ordered. EDMS 01:29 Albuterol-Ipratropium 3 ml Inhalation once ordered. cs11 01:29 Call Respiratory ordered. cs11 01:29 Dexamethasone 10 mg IV at bolus once ordered. cs11 01:31 Call Respiratory complete. ko2 02:03 CBC with Diff Reviewed. cs11 02:03 MED Profile Reviewed. cs11 02:03 Liver Profile Reviewed. cs11 02:03 Cardiac Marker Panel Reviewed. cs11 02:03 Amylase Reviewed. cs11 02:03 Lipase Reviewed. cs11 02:03 Pt & Aptt Reviewed. cs11 02:08 Plavix - Clopidogrel 150 mg PO once ordered. cs11 02:08 Metoprolol (Tartrate) 25 mg PO once ordered. cs11 02:08 heparin (Thrombolytic Protocol, 12 units/kg/hr)) 73246 units IV at 1000 units/hr once; cs11 Max. dose 1000units/hr. No Lovenox past 18hrs/ draw labs. ordered. 02:09 heparin (Thrombolytic Protocol, 60 units/kg)) 4000 units IVP once; max 4000 units. cs11 Ensure no Lovenox in past 18hr, labs drawn ordered. 02:30 Financial registration complete. hs2 02:31 [facility] Payment Agreement was scanned into Feebbo and attached to record. hs2 21:05 T-Sheet-- Draft Copy was scanned into Feebbo and attached to record. klr Administered Medications: 01:08 Drug: Aspirin 324 mg [aspirin 81 mg chewable tablet (4 tabs)] Route: PO; ko2 01:41 Drug: Albuterol-Ipratropium 3 ml [ipratropium-albuterol 0.5 mg-3 mg(2.5 mg base)/3 mL 6 nebulization soln (3 mL)] Route: Inhalation; :41 Drug: Dexamethasone 10 mg [dexamethasone 4 mg/mL injection solution] Route: IV; Rate: ko2 bolus; Site: right forearm; 02:20 Drug: heparin (Thrombolytic Protocol, 12 units/kg/hr)) 33681 units [heparin (porcine) ko2 25,000 unit/250 mL (100 unit/mL) in dextrose 5 % IV] {Co-Signature: mlc (Beatriz Palma RN).} Route: IV; Rate: 1000 units/hr; Site: right forearm; 02:20 Drug: heparin (Thrombolytic Protocol, 60 units/kg)) 4000 units [heparin (porcine) 5,000 ko2 unit/mL injection solution (0.8 mL)] {Co-Signature: mlc (Beatriz Palma RN).} Route: IVP; Site: right forearm; 02:23 Drug: Plavix - Clopidogrel 150 mg [clopidogrel 75 mg tablet (2 tabs)] Route: PO; ko2 02:23 Drug: Metoprolol 25 mg [metoprolol tartrate 25 mg tablet (1 tabs)] Route: PO; ko2 Critical Care Time: 02:14 Critical care time: Bedside Care: 90 minutes. Total time: 90 minutes cs11 Signatures: Dispatcher [employer] Ham Ramos RN RN cz Schiff, Craig, DO DO cs11 Lou Sharma RN RN ko2 Carito dOom, Christos Reg hs2 Leticia Martellr [address] Beatriz israel The chart was reviewed and I authenticate all verbal orders and agree with the evaluation and treatment provided.Attachments: 02:31 [facility] Payment Agreement hs2 21:05 T-Sheet-- Draft Copy klr Chart Complete MTDD
--- NOTE | 2016-12-18 22:14 | EDDOCDS ---
Nurse's Notes [facility] Name: Carlos Baltazar Age: 51 yrs Sex: Male : 1965 Arrival Date: 12/16/2016 Time: 00:38 Bed 9 Private MD: Diagnosis: Non-ST elevation (NSTEMI) myocardial infarction Presentation: 12/16 00:46 Presenting complaint: Patient states: he has had intermittent chest pain since 1300 cz yesterday. episode of chest pain when going to be arround 2200. pt described it at first as epigastic pain that has gotten worse. currently pt denies any chest pain. Aspirin was not taken prior to arrival. Adult Sepsis Screening: The patient does not have new or worsening altered mentation. Patient's respiratory rate is less than 22. Systolic blood pressure is greater than 100. Patient has a qSOFA score of 0- Negative Sepsis Screen. Suicide/Homicide risk assessment- the patient denies having any suicidal and/or homicidal ideations and does not present with any other emotional, behavioral or mental health complaints. 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 Transition of care: patient was not received from another setting of care. 00:46 Acuity: KOFI Level 3 cz 00:46 Method Of Arrival: Walkin/Carried/Asstd cz Triage Assessment: 00:50 General: Appears in no apparent distress. Pain: Denies pain. cz 03:53 HIV screening NA for this visit Offered previously. Cardiovascular: Chest pain is ko2 described as vague, radiates Does not radiate. episodes are intermittent began. Historical: - Allergies: No known drug Allergies; - Home Meds: 1. none - PMHx: none; - PSHx: Appendectomy; - Social history: Smoking status: Patient uses tobacco products, heavy tobacco smoker. No barriers to communication noted, The patient speaks fluent Belarusian, Speaks appropriately for age. - Family history: Not pertinent. - : The pt / caregiver states he / she is not on anticoagulants. Home medication list is obtained from the patient. - Exposure Risk Screening:: None identified. Screenin:04 Screening information is obtained from the patient. Fall risk: No risks identified. ko2 Assistance ADL's: requires no assistance with activities of daily living. Abuse/DV Screen: The patient / caregiver reports he/she is: not in a situation that causes fear, pain or injury. Nutritional screening: No deficits noted. Advance Directives: Currently, there is no health care proxy. There is no active DNR order. There is no living will. There is no Power of Snow Removal/Plowing. home support is adequate. Assessment: 01:03 General: Appears in no apparent distress, comfortable, Behavior is appropriate for age, ko2 cooperative. Pain: Denies pain. Neurological: Level of Consciousness is awake, alert. Cardiovascular: Heart tones S1 S2 present Rhythm is regular. Respiratory: Airway is patent Respiratory effort is even, unlabored. GI: Abdomen is obese. Derm: Skin is normal. Musculoskeletal: Range of motion intact in all extremities. 02:00 General: Appears in no apparent distress, comfortable, Behavior is appropriate for age, ko2 cooperative. Pain: Denies pain. Neurological: Level of Consciousness is awake, alert. Cardiovascular: Rhythm is regular. Respiratory: Airway is patent Respiratory effort is even, unlabored. Derm: Skin is normal. 03:00 General: Appears in no apparent distress, comfortable, Behavior is appropriate for age, ko2 cooperative. Neurological: Level of Consciousness is awake, alert. Respiratory: Airway is patent Respiratory effort is even, unlabored. Derm: Skin is normal. 04:04 General: Appears in no apparent distress, comfortable, Behavior is appropriate for age, ko2 cooperative. Pain: Denies pain. Neurological: Level of Consciousness is awake, alert. Respiratory: Airway is patent Respiratory effort is even, unlabored. Derm: Skin is normal. Vital Signs: 00:50 Weight 129.27 kg; Height 5 ft. 8 in. (172.72 cm); cz 00:51 BP 150 / 90; Pulse 83; Resp 16; Temp 98.1(T); Pulse Ox 94% on R/A; cz 01:05 Pulse 76 MON; Pulse Ox 96% ; ko2 01:06 BP 129 / 64 (auto/); ko2 01:21 BP 121 / 57 (auto/); ko2 01:21 Pulse 74 MON; Pulse Ox 95% ; ko2 01:35 Pulse 72 MON; Pulse Ox 96% ; ko2 01:36 BP 117 / 55 (auto/); ko2 01:51 BP 116 / 56 (auto/); ko2 01:51 Pulse 78 MON; Pulse Ox 94% ; ko2 02:06 BP 118 / 55 (auto/); ko2 02:06 Pulse 76 MON; Pulse Ox 96% ; ko2 02:21 BP 165 / 84 (auto/); ko2 02:21 Pulse 86 MON; Pulse Ox 96% ; ko2 02:36 BP 173 / 79 (auto/); ko2 02:36 Pulse 76 MON; Pulse Ox 96% ; ko2 02:51 BP 143 / 64 (auto/); ko2 02:51 Pulse 78 MON; Pulse Ox 96% ; ko2 03:06 BP 138 / 65 (auto/); ko2 03:06 Pulse 84 MON; Pulse Ox 95% ; ko2 04:38 BP 130 / 56; Pulse 72; Resp 18; Temp 98.6; Pulse Ox 97% ; Pain 0/10; ko2 00:50 Body Mass Index 43.33 (129.27 kg, 172.72 cm) cz Vitals: 00:50 Log In Time: December 16, 2016 at 00:39. cz ED Course: 00:39 Patient visited by Carito Odom Reg. hs2 00:39 Patient moved to Waiting hs2 00:44 Lou Sharma RN is Primary Nurse. cz 00:44 Patient moved to 9 cz 00:49 Triage Initiated cz 00:53 Bandar Tabor DO is Attending Physician. cs11 00:53 Patient visited by Bandar Tabor DO. cs11 00:53 EKG done. (by ED staff). Reviewed by Bandar Tabor DO. kb5 01:01 Pt & Aptt Sent. ko2 01:02 Cardiac Marker Panel Sent. ko2 01:02 Lipase Sent. ko2 01:02 Amylase Sent. ko2 01:02 Liver Profile Sent. ko2 01:02 MED Profile Sent. ko2 01:02 CBC with Diff Sent. ko2 01:03 Inserted saline lock: 20 gauge in right forearm and blood collected. The patient ko2 tolerated the procedure well. 01:42 Patient visited by Lou Sharma RN. ko2 02:17 Inserted saline lock: 20 gauge in left antecubital area The patient tolerated the mlc procedure well. 02:28 Patient name changed from Carlos\S\E\S\Baltazar\S\ to Carlos\S\Edward\S\Baltazar. EDMS 02:31 [facility] Payment Agreement was scanned into Toutpost and attached to record. hs2 03:53 The patient / caregiver is instructed regarding the plan of care and ED course. Cardiac ko2 monitor on. Pulse ox on. NIBP on. 04:37 No procedures done that require assistance. ko2 08:10 Chest, 2 View (pa\E\lat) Returned. EDMS 16:07 EKG-ADULT Returned. EDMS 21:05 T-Sheet-- Draft Copy was scanned into Toutpost and attached to record. klr Administered Medications: 01:08 Drug: Aspirin 324 mg [aspirin 81 mg chewable tablet (4 tabs)] Route: PO; ko2 01:41 Drug: Albuterol-Ipratropium 3 ml [ipratropium-albuterol 0.5 mg-3 mg(2.5 mg base)/3 mL jh6 nebulization soln (3 mL)] Route: Inhalation; 01:41 Drug: Dexamethasone 10 mg [dexamethasone 4 mg/mL injection solution] Route: IV; Rate: ko2 bolus; Site: right forearm; 02:20 Drug: heparin (Thrombolytic Protocol, 12 units/kg/hr)) 82105 units [heparin (porcine) ko2 25,000 unit/250 mL (100 unit/mL) in dextrose 5 % IV] {Co-Signature: mlc (Beatriz Palma RN).} Route: IV; Rate: 1000 units/hr; Site: right forearm; 02:20 Drug: heparin (Thrombolytic Protocol, 60 units/kg)) 4000 units [heparin (porcine) 5,000 ko2 unit/mL injection solution (0.8 mL)] {Co-Signature: mlc (Beatriz Palma RN).} Route: IVP; Site: right forearm; 02:23 Drug: Plavix - Clopidogrel 150 mg [clopidogrel 75 mg tablet (2 tabs)] Route: PO; ko2 02:23 Drug: Metoprolol 25 mg [metoprolol tartrate 25 mg tablet (1 tabs)] Route: PO; ko2 RT: 01:41 Initial Med Neb Given as ordered Patient was instructed and evaluated on procedure jh6 Patient tolerated procedure well without adverse effect. Respiratory: Airway is patent Respiratory effort is even, unlabored, Respiratory pattern is regular symmetrical, Breath sounds are coarse in left posterior lower lobe Breath sounds with crackles in left posterior upper lobe, right posterior upper lobe and right posterior middle lobe Breath sounds with rhonchi in left posterior lower lobe Breath sounds are diminished in left posterior upper lobe, right posterior upper lobe, right posterior middle lobe and right posterior lower lobe. 01:46 Respiratory: Breath sounds are clear in left posterior upper lobe, right posterior jh6 upper lobe and right posterior middle lobe Breath sounds with crackles in right posterior lower lobe Breath sounds with rhonchi in left posterior lower lobe Breath sounds are diminished in left posterior upper lobe, right posterior upper lobe, left posterior lower lobe, right posterior middle lobe and right posterior lower lobe. Order Results: Lab Order: CBC with Diff; SPEC'M 12/16/16 00:58 Test: WHITE BLOOD COUNT; Value: 9.6; Range: 4.0-10.0; Units: K/mm3; Status: F Test: RED BLOOD COUNT; Value: 5.21; Range: 4.30-6.10; Units: M/mm3; Status: F Test: HEMOGLOBIN; Value: 15.7; Range: 14.0-18.0; Units: g/dl; Status: F Test: HEMATOCRIT; Value: 46.1; Range: 42.0-52.0; Units: %; Status: F Test: MEAN CORPUSCULAR VOLUME; Value: 88.4; Range: 80.0-96.0; Units: fl; Status: F Test: MEAN CORPUSCULAR HEMOGLOBIN; Value: 30.1; Range: 27.0-33.0; Units: pg; Status: F Test: MEAN CORPUSCULAR HGB CONC; Value: 34.1; Range: 32.0-36.5; Units: g/dl; Status: F Test: RED CELL DISTRIBUTION WIDTH; Value: 13.0; Range: 11.5-14.5; Units: %; Status: F Test: PLATELET COUNT, AUTOMATED; Value: 233; Range: 150-450; Units: k/mm3; Status: F Test: NEUTROPHILS %; Value: 61.2; Range: 36.0-66.0; Units: %; Status: F Test: LYMPH %; Value: 24.7; Range: 24.0-44.0; Units: %; Status: F Test: MONO %; Value: 7.2; Range: 0.0-5.0; Abnormal: Above high normal; Units: %; Status: F Test: EOS %; Value: 3.8; Range: 0.0-3.0; Abnormal: Above high normal; Units: %; Status: F Test: BASO %; Value: 0.6; Range: 0.0-1.0; Units: %; Status: F Test: LARGE UNSTAINED CELL %; Value: 2.6; Range: 0.0-4.0; Units: %; Status: F Test: NEUTROPHILS #; Value: 5.9; Range: 1.8-7.7; Units: K/mm3; Status: F Test: LYMPH #; Value: 2.4; Range: 1.5-4.5; Units: K/mm3; Status: F Test: MONO #; Value: 0.7; Range: 0.0-0.8; Units: K/mm3; Status: F Test: EOS #; Value: 0.4; Range: 0.0-0.50; Units: K/mm3; Status: F Test: BASO #; Value: 0.0; Range: 0.0-0.2; Units: K/mm3; Status: F Test: LARGE UNSTAINED CELL #; Value: 0.3; Range: 0.0-0.4; Units: K/mm3; Status: F Lab Order: [facility] Profile; [facility]' 12/16/16 00:58 Test: GLUCOSE, FASTING; Value: 116; Range: 70-105; Abnormal: Above high normal; Units: MG/DL; Status: F Test: BLOOD UREA NITROGEN; Value: 20; Range: 7-18; Abnormal: Above high normal; Units: MG/DL; Status: F Test: CREATININE FOR GFR; Value: 0.85; Range: 0.70-1.30; Units: MG/DL; Status: F Test: GLOMERULAR FILTRATION RATE; Value: > 60.0; Range: >56; Status: F Test: SODIUM LEVEL; Value: 141; Range: 136-145; Units: MEQ/L; Status: F Test: POTASSIUM SERUM; Value: 4.2; Range: 3.5-5.1; Units: MEQ/L; Status: F Test: CHLORIDE LEVEL; Value: 107; Range: 98-107; Units: MEQ/L; Status: F Test: CARBON DIOXIDE LEVEL; Value: 27; Range: 21-32; Units: MEQ/L; Status: F Test: ANION GAP; Value: 7; Range: 8-16; Abnormal: Below low normal; Units: MEQ/L; Status: F Test: CALCIUM LEVEL; Value: 8.9; Range: 8.5-10.1; Units: MG/DL; Status: F Test Note: ; Units are mL/min/1.73 m2 Chronic Kidney Disease Staging per NKF: Stage I & II GFR >=60 Normal to Mildly Decreased Stage III GFR 30-59 Moderately Decreased Stage IV GFR 15-29 Severely Decreased Stage V GFR <15 Very Little GFR Left ESRD GFR <15 on CHEMISTRY TECHNOLOGIST Lab Order: Liver Profile; 12/16/16:58 Test: AST/SGOT; Value: 16; Range: 15-37; Units: U/L; Status: F Test: ALT/SGPT; Value: 22; Range: 12-78; Units: U/L; Status: F Test: ALKALINE PHOSPHATASE; Value: 74; Range: 45-117; Units: U/L; Status: F Test: BILIRUBIN,TOTAL; Value: 0.3; Range: 0.2-1.0; Units: MG/DL; Status: F Test: BILIRUBIN,DIRECT; Value: 0.1; Range: 0.0-0.2; Units: MG/DL; Status: F Test: TOTAL PROTEIN; Value: 7.8; Range: 6.4-8.2; Units: GM/DL; Status: F Test: ALBUMIN; Value: 3.8; Range: 3.2-5.2; Units: GM/DL; Status: F Test: ALBUMIN/GLOBULIN RATIO; Value: 0.95; Range: 1.00-1.93; Abnormal: Below low normal; Status: F Lab Order: Amylase; 12/16/16 00:58 Test: AMYLASE; Value: 95; Range: 25-115; Units: U/L; Status: F Lab Order: Lipase; 12/16/16:58 Test: LIPASE; Value: 231; Range: 73-393; Units: U/L; Status: F Lab Order: Cardiac Marker Panel; 12/16/16 00:58 Test: CPK CREATINE PHOSPHOKINASE; Value: 129; Range: 39-308; Units: U/L; Status: F Test: CK-MB VALUE MASS; Value: 4.2; Range: 0.0-3.6; Abnormal: Above high normal; Units: NG/ML; Status: F Test: MB/CK RELATIVE INDEX; Value: 3.25; Range: < OR =4; Status: F Test: TROPONIN I; Value: 0.18; Range: < 0.10; Abnormal: Above high normal; Units: NG/ML; Status: F Test Note: ; DIAGNOSIS CRITERIA MMB ng/ml Relative Index (RI) NON-AMI < or = 5 N/A TOLLIVER ZONE > 5 < or = 4 AMI > 5 > 4 Lab Order: Pt & Aptt; SPEC'M 12/16/16 00:58 Test: PROTHROMBIN TIME; Value: 13.0; Range: 12.3-14.5; Units: SECONDS; Status: F Test: INR; Value: 0.97; Status: F Test: PARTIAL THROMBOPLASTIN TIME; Value: 30.3; Range: 26.6-37.1; Units: SECONDS; Status: F Test Note: ; THERAPUTIC HUMAN INR VALUES INDICATIONS NORMAL RANGES PROPHYLAXIS/TREATMENT OF: VENOUS THROMBOSIS 2.0-3.0 PULMONARY EMBOLISM 2.0-3.0 PREVENTION OF SYSTEMIC EMBOLISM FROM: TISSUE HEART VALVES 2.0-3.0 ACUTE MYOCARDIAL INFARCTION 2.0-3.0 VALVULAR HEART DISEASE 2.0-3.0 ATRIAL FIBRILLATION 2.0-3.0 MECHANICAL VALVES(HIGH RISK) 2.5-3.5 RECURRENT MYOCARDIAL INFARCTION 2.5-3.5 Radiology Order: EKG-ADULT Test: EKG-ADULT REASON FOR EXAMINATION: Chest Pain; Stationary ECG Study; [facility] - ED; ; Test Date: 2016-12-16; Pat Name: CARLOS BALTAZAR Department:; Room: -; Gender: M 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 Program 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: NIK; : 1965 Requested By: BANDAR TABOR; Order Number: [id number] Reading MD: Chikis Parson; Measurements; Intervals [place]; Rate: 81 P: 79; KS: 156 QRS: 47; QRSD: 97 T: 67; QT: 356; QTc: 415; Interpretive Statements; SINUS RHYTHM; INDETERMINATE AXIS; INCOMPLETE RIGHT BUNDLE BRANCH BLOCK; NSTTW ABNORMALITY; NO PRIOR FOR COMPARISON; ; Electronically Signed On 12-16-2016 15:22:41 EST by Chikis Parson; Radiology Order: Chest, 2 View (pa\E\lat) Test: Chest, 2 View (pa\E\lat) REASON FOR EXAMINATION: Abdomen Pain; Clinical: Lower chest and abdominal pain .; ; Comparison: None .; ; Technique: PA and lateral.; ; Findings:; The mediastinum and cardiac silhouette are normal. The lung manzo are clear and; without acute consolidation, effusion, or pneumothorax. The skeletal structures; are intact and normal.; ; Impression:; 1. No acute cardiopulmonary process.; ; ; Signed by; Jed Person MD 12/16/2016 07:46 A; Outcome: 02:13 ER care complete, transfer ordered by Provider. cs11 04:03 Admission hand-off: Report called to Eda Vazquez RN [facility]. ko2 04:04 Discharge Assessment: Patient awake, alert and oriented x 3. No cognitive and/or ko2 functional deficits noted. Patient verbalized understanding of disposition instructions. patient administered narcotics - no. 04:37 The following High Risk Discharge criteria are identified: None. Transferred to [address] by EMS ground [facility] ambulance report to accompanying personnel Severino Hendrix, Abstract Clerk and HENRY Elizabeth. Condition: stable. No special radiology studies were completed. Property :Personal belongings accompany Pt. 04:39 Patient left the ED. ko2 Signatures: Dispatcher [employer] EDMS Ham Calderon RN RN cz Bancroft, Kristopher, JOHANNA purcell5 [address] Bandar Tabor, DO DO cs11 Beatriz Palma RN RN mlc Ogden, Kari, RN RN ko2 Carito Odom, Reg Reg hs2 Leticia Martell RN Chart Complete MTDD
== END 2016-12-16 04:39 | disposition short-term general hospital (02) ==
LOC: M ED 00:38
DX: I21.4 Non-ST elevation (NSTEMI) myocardial infarction (principal); F17.210 Nicotine dependence, cigarettes, uncomplicated
CPT/HCPCS: 36415; 71020; 80048; 80076; 82150; 82550; 82553; 83690; 85025; 85610; 85730; 93005; 94640; 96374; 96375; 99291; 99292; J1100

== ENCOUNTER → 2017-03-27 | Outpatient (REF) | payer OTHER ==
[2017-03-27 12:17] LABS: ALBUMIN 3.8 GM/DL (3.2-5.2); ALBUMIN/GLOBULIN RATIO 1.12 (1.00-1.93); ALKALINE PHOSPHATASE 66 U/L (45-117); ALT/SGPT 21 U/L (12-78); ANION GAP 7 MEQ/L (8-16); AST/SGOT 13 U/L (15-37); BILIRUBIN,TOTAL 0.4 MG/DL (0.2-1.0); BLOOD UREA NITROGEN 17 MG/DL (7-18); CARBON DIOXIDE LEVEL 26 MEQ/L (21-32); CHLORIDE LEVEL 108 MEQ/L (98-107); CHOLESTEROL LEVEL 179 MG/DL (<200); GLOMERULAR FILTRATION RATE > 60.0 (>56); GLUCOSE, FASTING 110 MG/DL (70-105); POTASSIUM SERUM 4.1 MEQ/L (3.5-5.1); SODIUM LEVEL 141 MEQ/L (136-145); TOTAL PROTEIN 7.2 GM/DL (6.4-8.2); TRIGLYCERIDES LEVEL 199 MG/DL (<150)
== END ==
LOC: M SFHCCLAY 07:28
PROVIDERS: ATTEND Nurse Practitioner
DX: Z95.5 Presence of coronary angioplasty implant and graft (principal)

== ENCOUNTER 2017-05-08 10:00 | Emergency (ER) | payer OTHER ==
[~2017-05-08] VITALS: Ht 172.7 cm; Wt 127.3 kg
[2017-05-08 10:01] VITALS: BP 129/70
[2017-05-08] MEDS ORDERED: ASPI1TAB PO (10:09)
[2017-05-08] MEDS ORDERED: CLOP75TA2 (10:09)
[2017-05-08] MEDS ORDERED: ATOR1TAB21 (10:09)
[2017-05-08] MEDS ORDERED: METO-346 (10:09)
[2017-05-08] MEDS ORDERED: AUGM875T28 PO (10:18)
[2017-05-09] MEDS ORDERED: CLEO300C2 PO (21:59)
== END 2017-05-08 10:28 | disposition home or self-care (01) ==
LOC: M ED 10:00
DX: L03.211 Cellulitis of face (principal); L02.01 Cutaneous abscess of face; I25.2 Old myocardial infarction; Z87.442 Personal history of urinary calculi; F17.200 Nicotine dependence, unspecified, uncomplicated; Z79.82 Long term (current) use of aspirin; Z79.899 Other long term (current) drug therapy

== ENCOUNTER 2017-05-09 20:05 | Emergency (ER) | payer OTHER ==
[~2017-05-09] VITALS: Ht 172.7 cm; Wt 127.3 kg
[~2017-05-09 20:05] MED LIST: ASPI1TAB PO; ATOR1TAB21; AUGM875T28 PO; CLOP75TA2; METO-346
[2017-05-09] MEDS ORDERED: CLINDAMYCIN 600 MG in APPROPRIATE DILUENT 1 EA IV ONE (21:00)
[2017-05-09 21:20] LABS: BASO # 0.1 K/mm3 (0.0-0.2); BASO % 0.7 % (0.0-1.0); EOS # 0.8 K/mm3 (0.0-0.50); EOS % 6.5 % (0.0-3.0); LARGE UNSTAINED CELL # 0.1 K/mm3 (0.0-0.4); LYMPH # 3.3 K/mm3 (1.5-4.5); LYMPH % 25.7 % (24.0-44.0); MEAN CORPUSCULAR HEMOGLOBIN 30.6 pg (27.0-33.0); MEAN CORPUSCULAR HGB CONC 34.1 g/dl (32.0-36.5); MEAN CORPUSCULAR VOLUME 89.5 fl (80.0-96.0); MONO # 0.6 K/mm3 (0.0-0.8); MONO % 4.9 % (0.0-5.0); NEUTROPHILS # 7.5 K/mm3 (1.8-7.7); NEUTROPHILS % 61.1 % (36.0-66.0); PLATELET COUNT, AUTOMATED 222 k/mm3 (150-450); RED CELL DISTRIBUTION WIDTH 13.7 % (11.5-14.5); WHITE BLOOD COUNT 12.2 K/mm3 (4.0-10.0)
[2017-05-09 21:37] LABS: ANION GAP 6 MEQ/L (8-16); BLOOD UREA NITROGEN 15 MG/DL (7-18); CALCIUM LEVEL 9.5 MG/DL (8.5-10.1); CARBON DIOXIDE LEVEL 27 MEQ/L (21-32); CHLORIDE LEVEL 107 MEQ/L (98-107); CREATININE FOR GFR 0.76 MG/DL (0.70-1.30); ERYTHROCYTE SEDIMENTATION RATE 22 mm/hr (0-20); GLOMERULAR FILTRATION RATE > 60.0 (>56); GLUCOSE, FASTING 156 MG/DL (70-105); POTASSIUM SERUM 3.9 MEQ/L (3.5-5.1); SODIUM LEVEL 140 MEQ/L (136-145)
[2017-05-09] MEDS ORDERED: CLEO300C2 PO (21:59)
[2017-05-09 22:05] VITALS: BP 136/76
[2017-05-09] MEDS ORDERED: CLINDAMYCIN 150 MG CAP PO ONE (22:15)
== END 2017-05-09 22:15 | disposition home or self-care (01) ==
LOC: M ED 20:05
DX: L03.211 Cellulitis of face (principal); I25.10 Atherosclerotic heart disease of native coronary artery without angina pectoris; I25.2 Old myocardial infarction; Z95.5 Presence of coronary angioplasty implant and graft; Z79.82 Long term (current) use of aspirin; Z79.899 Other long term (current) drug therapy

== ENCOUNTER → 2017-10-02 | Outpatient (REF) | payer OTHER ==
[~2017-10-02] MED LIST changes: +CLEO300C2 PO
[2017-10-02 12:26] LABS: ALBUMIN 4.1 GM/DL (3.2-5.2); ALBUMIN/GLOBULIN RATIO 1.28 (1.00-1.93); ALKALINE PHOSPHATASE 73 U/L (45-117); ALT/SGPT 23 U/L (12-78); ANION GAP 9 MEQ/L (8-16); AST/SGOT 14 U/L (7-37); BILIRUBIN,TOTAL 0.4 MG/DL (0.2-1.0); BLOOD UREA NITROGEN 18 MG/DL (7-18); CALCIUM LEVEL 9.1 MG/DL (8.5-10.1); CARBON DIOXIDE LEVEL 24 MEQ/L (21-32); CHLORIDE LEVEL 108 MEQ/L (98-107); CREATININE FOR GFR 0.68 MG/DL (0.70-1.30); GLOMERULAR FILTRATION RATE > 60.0 (>56); GLUCOSE, FASTING 141 MG/DL (70-105); POTASSIUM SERUM 4.3 MEQ/L (3.5-5.1); SODIUM LEVEL 141 MEQ/L (136-145); TOTAL PROTEIN 7.3 GM/DL (6.4-8.2)
== END ==
LOC: M SFHCCLAY 07:29
PROVIDERS: ATTEND Family Medicine
DX: R73.01 Impaired fasting glucose (principal)

== ENCOUNTER → 2018-03-05 | Outpatient (CLI) | payer OTHER | LOC: M CLY 14:05 | DX: M17.12 Unilateral primary osteoarthritis, left knee (principal) | CPT/HCPCS: 73564 ==

== ENCOUNTER 2018-07-10 11:39 | Emergency (ER) | payer OTHER | END 2018-07-10 13:00 | disposition home or self-care (01) | LOC: M ED 11:39 | DX: L02.01 Cutaneous abscess of face (principal) | CPT/HCPCS: 99282 ==

== ENCOUNTER → 2021-11-17 | Outpatient (REF) ==
[~2021-11-17] MED LIST changes: -ASPI1TAB PO; +ASPI81TA26 PO; +METO1TAB87 PO
== END ==
LOC: M PLAIMG 12:06
PROVIDERS: ATTEND Internal Medicine
DX: M25.561 Pain in right knee (principal)

== ENCOUNTER 2025-06-07 10:19 | Emergency (ER) | payer OTHER ==
[~2025-06-07] VITALS: Ht 172.7 cm; Wt 146.9 kg
[2025-06-07] MEDS ORDERED: MORPHINE 2 MG/ML 1 ML VIAL IV PRN (11:00)
[2025-06-07 11:05] LABS: BASO # 0.1 10^3/uL (0.0-0.2); BASO % 0.8 % (0.0-1.0); EOS # 0.4 10^3/uL (0.0-0.5); EOS % 3.2 % (0.0-3.0); LYMPH # 3.2 10^3/uL (1.5-5.0); LYMPH % 26.3 % (24.0-44.0); MONO # 1.0 10^3/uL (0.0-0.8); MONO % 8.4 % (2.0-8.0); NEUTROPHILS # 7.5 10^3/uL (1.5-8.5); NEUTROPHILS % 60.8 % (36.0-66.0); PLATELET COUNT, AUTOMATED 244 10^3/uL (150-450)
[2025-06-07 11:18] LABS: INR 0.99
[2025-06-07 11:26] LABS: CK-MB VALUE MASS 1.8 NG/ML (<3.6)
[2025-06-07 11:28] LABS: ALT/SGPT 102 U/L (7.0-40); AST/SGOT 79 U/L (<34); CALCIUM LEVEL 10.2 MG/DL (8.5-10.1); CARBON DIOXIDE LEVEL 24 MMOL/L (20-31); CHLORIDE LEVEL 104 MMOL/L (98-107); CREATININE FOR GFR 0.85 MG/DL (0.70-1.30); GLOMERULAR FILTRATION RATE > 90.0 (>56); POTASSIUM SERUM 4.6 MMOL/L (3.5-5.1); SODIUM LEVEL 140 MMOL/L (136-145)
[2025-06-07 11:36] LABS: CPK CREATINE PHOSPHOKINASE 86 U/L (46-171); MB/CK RELATIVE INDEX 2.09 (< OR =4)
[2025-06-07] MEDS: ASPIRIN 81 MG CHEWABLE TABLET PO ONE (11:41)
[2025-06-07] MEDS ORDERED: ISOVUE-370 76% 100 ML VIAL As Ordered ONE (11:49)
[2025-06-07 12:18] VITALS: BP 124/60
[2025-06-07] MEDS: NITROGLYCERIN 0.4 MG SUBL TABLET SL PRN (12:18)
[2025-06-07 12:34] LABS: CK-MB VALUE MASS 12.8 NG/ML (<3.6)
[2025-06-07 12:38] LABS: CPK CREATINE PHOSPHOKINASE 214.0 U/L (46-171); MB/CK RELATIVE INDEX 5.98 (< OR =4)
[2025-06-07] MEDS: HEPARIN DRIP 25,000 UNITS in IV 1 EA IV SCH (13:11)
[2025-06-07] MEDS: CLOPIDOGREL 300 MG TAB PO ONE (13:11)
[2025-06-07] MEDS: HEPARIN SOD 5000 UNITS/ML 1 ML VIAL/SYRINGE IV ONE (13:11)
[2025-06-07 13:48] VITALS: BP 132/62; TEMP 97.9; O2SAT 95
[2025-06-07] MEDS: ONDANSETRON 4MG 2ML VIAL IV ONE (13:54)
== END 2025-06-07 13:55 | disposition short-term general hospital (02) ==
LOC: M ED 10:19
DX: I21.4 Non-ST elevation (NSTEMI) myocardial infarction (principal); I25.2 Old myocardial infarction; J98.4 Other disorders of lung; F17.200 Nicotine dependence, unspecified, uncomplicated; I44.5 Left posterior fascicular block; Z86.79 Personal history of other diseases of the circulatory system; Z79.82 Long term (current) use of aspirin; Z79.02 Long term (current) use of antithrombotics/antiplatelets; Z79.899 Other long term (current) drug therapy
CPT/HCPCS: 71045; 71275; 80047; 80048; 80076; 82550; 82553; 83690; 84484; 85025; 85610; 85730; 93005; 93041; 94760; 96374; 99285; Q9967